=== PATIENT | female | born 1960 | race Caucasian/White ===

== ENCOUNTER 2017-08-29 09:37 | Emergency (ER) | payer SELFPAY ==
[2017-08-29] MEDS ORDERED: PANTOPRAZOLE 40 MG INJ ONE (10:22)
[2017-08-29] MEDS ORDERED: NA CHLORIDE 0.9% 1,000 ML ONE ×2 (10:22→11:48)
[2017-08-29 10:29] LABS: Absolute Lymphocytes (CBC) 1.9 K/uL (0.7-4.9); Absolute Monocytes 0.6 K/uL (0.1-1.3); Absolute Neutrophil 6.9 K/uL (1.8-8.0); Basophils % 0.9 % (0-1.3); Eosinophils % 0.5 % (0-4.4); Hematocrit 42.3 % (36.0-45.0); Lymphocytes % 19.8 % (15.3-44.8); MCH 29.3 pg (27.0-35.0); MCV 90.3 fL (80-100); MPV 10.6 fL (7.6-11.3); Monocytes % 6.1 % (3.3-12.3); RBC Red Blood Cell Count 4.68 M/uL (3.86-4.86)
[2017-08-29 10:31] LABS: Bicarbonate 24 mEq/L (21-31); Glucose Level 154 mg/dL (65-120); Lipase 25 U/L (22-51); Potassium 4.3 mEq/L (3.6-5.0); Sodium Level 136 mEq/L (135-145)
[2017-08-29 10:37] LABS: ALT/SGPT 24 IU/L (10-60); AST/SGOT 44 IU/L (10-42); Albumin 3.7 g/dL (3.2-5.5); Alkaline Phosphatase 119 IU/L (42-121); BUN Blood Urea Nitrogen 38 mg/dL (6-20); Bilirubin Direct 0.3 mg/dL (0-0.2); Bilirubin Total 0.9 mg/dL (0.3-1.2); Protein, Total 7.7 g/dL (6.0-8.3)
[2017-08-29 11:51] LABS: Urine Blood NEGATIVE (NEG); Urine Glucose NEGATIVE (NEG); Urine Protein NEGATIVE (NEG)
[2017-08-29 11:56] LABS: Urine Bacteria <20 /HPF (<20); Urine Culture Reflex Order NOT NEEDED; Urine RBC <5 /HPF (NONE SEEN)
[2017-08-29] MEDS ORDERED: ONDANSETRON 4 MG/2 ML VIAL IV PRN (12:06)
[2017-08-29] MEDS ORDERED: ACETAMINOPHEN 500 MG TAB PO PRN (12:06)
--- NOTE | 2017-08-29 12:21 | ER ---
Nurse's Notes [facility] Name: Lucie Sinclair Age: 57 yrs Sex: Female : 1960 Arrival Date: 08/29/2017 Time: 09:42 Bed 15 Private MD: Gio Hernandez T Diagnosis: Esophageal varices with bleeding;Gastric varices Presentation: 08/29 09:48 Presenting complaint: Patient states: dizziness, blood in vomit and black stools since ss this morning. Pt reports she is scheduled to have an abd ultrasound tomorrow morning and a recent GI bleed. Transition of care: patient was not received from another setting of care. Onset of symptoms was August 29, 2017. Risk Assessment: Do you want to hurt yourself or someone else? Patient reports no desire to harm self or others. Initial Sepsis Screen: Does the patient meet any 2 criteria? HR > 90 bpm. Does the patient have a suspected source of infection? No. Patient's initial sepsis screen is negative. Care prior to arrival: None. 09:48 Method Of Arrival: Ambulatory ss 09:48 Acuity: RJ 2 ss Historical: - Allergies: 09:51 No Known Allergies; ss - PMHx: 09:51 Arthritis; pinched nerve in neck and lower back; Depression; ss - PSHx: 09:51 None; ss - Immunization history:: Adult Immunizations unknown. - Social history:: Smoking status: Patient uses tobacco products, smokes one-half pack cigarettes per day. - Ebola Screening: : Patient denies exposure to infectious person Patient denies travel to an Ebola-affected area in the 21 days before illness onset. Screenin:55 Abuse screen: Denies threats or abuse. Nutritional screening: No deficits noted. rb1 Tuberculosis screening: No symptoms or risk factors identified. Fall Risk None identified. Assessment: 09:55 General: Appears in no apparent distress. comfortable, Behavior is calm, cooperative. rb1 Pain: Complains of pain in abdomen Pain currently is 4 out of 10 on a pain scale. Neuro: Level of Consciousness is awake, alert, obeys commands, Oriented to person, place, time, situation. Cardiovascular: Capillary refill < 3 seconds is brisk in bilateral fingers. Respiratory: Airway is patent Respiratory effort is even, unlabored, Respiratory pattern is regular, symmetrical. GI: Reports bloating, bloody stool, vomiting, since this morning pt. reports vomiting blood. GI: Abdomen is distended, Hard knot noted in the Epigastric area. Pt. is due to have an US tomorrow. : No signs and/or symptoms were reported regarding the genitourinary system. Derm: Skin is pink, warm \T\ dry. Musculoskeletal: Range of motion: intact in all extremities. 10:50 Reassessment: Patient appears in no apparent distress at this time. No changes from rb1 previously documented assessment. 11:50 Reassessment: Patient appears in no apparent distress at this time. Patient and/or rb1 family updated on plan of care and expected duration. Pain level reassessed. Patient is alert, oriented x 3, equal unlabored respirations, skin warm/dry/pink. Assisted the pt. to the restroom. Patient denies pain at this time. 12:34 Reassessment: Patient appears in no apparent distress at this time. Patient and/or rb1 family updated on plan of care and expected duration. Pain level reassessed. Patient is alert, oriented x 3, equal unlabored respirations, skin warm/dry/pink. Pt. is sitting on bedside eating her clear liquid tray. 13:30 Reassessment: Patient appears in no apparent distress at this time. No changes from rb1 previously documented assessment. 14:29 Reassessment: pt. resting with eyes closed, respirations even, unlabored. call light rb1 within reach. 16:51 Reassessment: Patient appears in no apparent distress at this time. Patient and/or rb1 family updated on plan of care and expected duration. Pain level reassessed. Patient is alert, oriented x 3, equal unlabored respirations, skin warm/dry/pink. 16:54 Reassessment: Pt. spit up approximately 50 ml of bloody sputum. Provider notified. rb1 Received order for Zofran 4 mg IVP once. 18:00 Reassessment: Patient appears in no apparent distress at this time. Patient and/or rb1 family updated on plan of care and expected duration. Pain level reassessed. Patient is alert, oriented x 3, equal unlabored respirations, skin warm/dry/pink. 18:36 Reassessment: Attempted to call Jo banerjee at [facility] asked if we could call rb1 be [id number] because they did not have the staff at this time. Notified CN. Yuliya 18:45 Reassessment: Called report to Jo at [facility]. Information from the [facility] was rb1 given. All questions asked and answered. Vital Signs: 09:51 BP 111 / 74; Pulse 128; Resp 17; Temp 97.3(TE); Pulse Ox 95% on R/A; Weight 72.57 kg; ss Height 5 ft. 7 in. (170.18 cm); Pain 5/10; 10:50 BP 109 / 67; Pulse 92; Resp 17; Pulse Ox 96% on R/A; rb1 11:50 BP 126 / 73; Pulse 94; Resp 19; Pulse Ox 98% on R/A; Pain 0/10; rb1 12:30 BP 109 / 55; Pulse 102; Resp 17; Pulse Ox 95% on R/A; rb1 13:30 BP 111 / 62; Pulse 94; Resp 18; Pulse Ox 97% on R/A; rb1 14:30 BP 121 / 76; Pulse 93; Resp 18; Pulse Ox 97% on R/A; rb1 15:30 BP 105 / 79; Pulse 83; Resp 17; Pulse Ox 99% on R/A; rb1 16:30 BP 127 / 79; Pulse 89; Resp 19; Pulse Ox 99% on R/A; rb1 17:30 BP 145 / 63; Pulse 95; Resp 19; Pulse Ox 96% ; rb1 18:30 BP 133 / 67; Pulse 88; Resp 18; Pulse Ox 95% on R/A; rb1 09:51 Body Mass Index 25.06 (72.57 kg, 170.18 cm) ss ED Course: 09:42 Patient arrived in ED. sb2 09:43 Gio Hernandez MD is Private Physician. sb2 09:50 Triage completed. ss 09:51 Arm band placed on left wrist. ss 09:55 Patient has correct armband on for positive identification. Placed in gown. Bed in low rb1 position. Call light in reach. Side rails up X 1. Pulse ox on. NIBP on. 09:57 Yasemin Cardoso, RN is Primary Nurse. rb1 09:59 Jeremy Singh MD is Attending Physician. gs 10:06 Inserted saline lock: 22 gauge in right antecubital area, using aseptic technique. rb1 Blood collected. 10:55 EKG done, by loader technician. reviewed by Jeremy Singh MD. tc 11:16 Urine collected: clean catch specimen, clear. dh3 12:15 Collins Roach MD is Hospitalizing Provider. 13:01 CT completed. Patient tolerated procedure well. Patient moved to CT via stretcher. mw3 Patient moved back from CT. 14:36 Repeat lab(s) drawn. by va, sent to lab. 3 16:21 Repeat lab(s) drawn. by va, sent to lab. [facility] 19:25 No provider procedures requiring assistance completed. Patient transferred, IV remains rb1 in place. Administered Medications: 10:22 Drug: ProTONIX 40 mg Route: IVP; Site: right antecubital; rb1 10:41 Follow up: Response: No adverse reaction rb1 10:22 Drug: NS 0.9% 1000 ml Route: IV; Rate: 1 bolus; Site: right antecubital; rb1 11:19 Follow up: IV Status: Completed infusion rb1 11:52 Drug: NS 0.9% 1000 ml Route: IV; Rate: 1000 ml; Site: right antecubital; rb1 12:15 Follow up: IV Status: Completed infusion rb1 16:50 Drug: Octreotide 50 mcg Route: IV; Rate: bolus; Site: right antecubital; rb1 16:58 Drug: Zofran 4 mg Route: IVP; Site: right antecubital; rb1 17:18 Follow up: Response: No adverse reaction; Nausea is decreased rb1 Intake: 16:54 pt. spit out about 50 ml of bloody sputum. Provider notified. rb1 Output: 11:45 Urine: 1ml (Voided); Total: 1ml. rb1 16:54 pt. spit out about 50 ml of bloody sputum. Provider notified. rb1 Outcome: 12:20 Decision to Hospitalize by Provider. gs 16:52 ER care complete, transfer ordered by . gs 19:25 Patient left the ED. rb1 19:25 Transferred by ground EMS to [facility]. [facility] 19:25 Condition: stable 19:25 Instructed on the need for transfer. Signatures: Yuliya West, RN RN Lana Coker, surgery tech EKG Ttc Yasemin Cardoso RN RN [facility] Rosario Carrasco [facility] Jeremy Singh MD MD Kourtney Hernandez sb2 Brandie Edgar mw3 Corrections: (The following items were deleted from the chart) 18:45 18:42 Note:pt. spit out about 50 ml of bloody sputum. Provider notified.. rb1 rb1
--- NOTE | 2017-08-29 12:21 | EDPHYS ---
Physician Documentation [facility] Name: Lucie Sinclair Age: 57 yrs Sex: Female : 1960 Arrival Date: 08/29/2017 Time: 09:42 Bed 15 Private MD: Gio Hernandez T ED Physician Gurwinder Singhory HPI: 08/29 16:46 This 57 yrs old Female presents to ER via Ambulatory with complaints of gs Bloody Stools, Vomiting Blood. 16:46 The patient presents to the emergency department vomiting blood, a moderate amount, gs bright red, dark brown, 2 times since symptom onset, with rectal bleeding, melena. Onset: The symptoms/episode began/occurred 2 day(s) ago. Abdominal pain: described as crampy. Modifying factors: The symptoms are alleviated by nothing, the symptoms are aggravated by nothing. Associated signs and symptoms: Pertinent negatives: chest pain, fever. Severity of symptoms: At their worst the symptoms were severe in the emergency department the symptoms have improved moderately. The patient has not experienced similar symptoms in the past. The patient has not recently seen a physician. Historical: - Allergies: 09:51 No Known Allergies; ss - PMHx: 09:51 Arthritis; pinched nerve in neck and lower back; Depression; ss - PSHx: 09:51 None; ss - Immunization history:: Adult Immunizations unknown. - Social history:: Smoking status: Patient uses tobacco products, smokes one-half pack cigarettes per day. - Ebola Screening: : Patient denies exposure to infectious person Patient denies travel to an Ebola-affected area in the 21 days before illness onset. ROS: 16:46 All other systems are negative. gs Exam: 16:46 Head/Face: Normocephalic, atraumatic. Eyes: Pupils equal round and reactive to light, gs extra-ocular motions intact. Lids and lashes normal. Conjunctiva and sclera are non-icteric and not injected. Cornea within normal limits. Periorbital areas with no swelling, redness, or edema. ENT: Nares patent. No nasal discharge, no septal abnormalities noted. Tympanic membranes are normal and external auditory canals are clear. Oropharynx with no redness, swelling, or masses, exudates, or evidence of obstruction, uvula midline. Mucous membranes moist. Neck: Trachea midline, no thyromegaly or masses palpated, and no cervical lymphadenopathy. Supple, full range of motion without nuchal rigidity, or vertebral point tenderness. No Meningismus. Chest/axilla: Normal chest wall appearance and motion. Nontender with no deformity. No lesions are appreciated. 16:46 Constitutional: The patient appears alert, awake, pale. 16:46 Cardiovascular: Rate: tachycardic, Rhythm: regular, Pulses: no pulse deficits are appreciated. 16:46 ECG was reviewed by the Attending Physician. Vital Signs: 09:51 BP 111 / 74; Pulse 128; Resp 17; Temp 97.3(TE); Pulse Ox 95% on R/A; Weight 72.57 kg; ss Height 5 ft. 7 in. (170.18 cm); Pain 5/10; 10:50 BP 109 / 67; Pulse 92; Resp 17; Pulse Ox 96% on R/A; rb1 11:50 BP 126 / 73; Pulse 94; Resp 19; Pulse Ox 98% on R/A; Pain 0/10; rb1 12:30 BP 109 / 55; Pulse 102; Resp 17; Pulse Ox 95% on R/A; rb1 13:30 BP 111 / 62; Pulse 94; Resp 18; Pulse Ox 97% on R/A; rb1 14:30 BP 121 / 76; Pulse 93; Resp 18; Pulse Ox 97% on R/A; rb1 15:30 BP 105 / 79; Pulse 83; Resp 17; Pulse Ox 99% on R/A; rb1 16:30 BP 127 / 79; Pulse 89; Resp 19; Pulse Ox 99% on R/A; rb1 17:30 BP 145 / 63; Pulse 95; Resp 19; Pulse Ox 96% ; rb1 18:30 BP 133 / 67; Pulse 88; Resp 18; Pulse Ox 95% on R/A; rb1 09:51 Body Mass Index 25.06 (72.57 kg, 170.18 cm) MDM: 10:13 Patient medically screened. 16:46 Differential diagnosis: gastritis, hemorrhoids, hemorrhagic shock, varices. Data reviewed: vital signs, nurses notes. Response to treatment: the patient's symptoms have mildly improved after treatment. 16:46 ED course: dr asencoi says need to transfer due to esophageal varicies. 08/29 10:06 Order name: Basic Metabolic Panel; Complete Time: 11:42 08/29 10:06 Order name: CBC with Diff; Complete Time: 11:42 08/29 10:06 Order name: Hepatic Function; Complete Time: 11:42 08/29 10:06 Order name: Lipase; Complete Time: 11:42 08/29 10:06 Order name: Urine Microscopic Only; Complete Time: 11:57 08/29 10:06 Order name: Type And Screen; Complete Time: 11:42 08/29 11:28 Order name: Urine Dipstick--Ancillary (enter results); Complete Time: 11:57 ag 08/29 11:28 Order name: Urine --Ancillary (enter results); Complete Time: 11:57 ag 08/29 12:10 Order name: Basic Metabolic Panel [facility] 08/29 12:10 Order name: CBC with Automated Diff [facility] 08/29 12:10 Order name: Hematocrit [facility] 08/29 12:10 Order name: Hematocrit; Complete Time: 15:54 [facility] 08/29 12:10 Order name: Hematocrit [facility] 08/29 12:10 Order name: Hemoglobin [facility] 08/29 12:10 Order name: Hemoglobin; Complete Time: 15:54 [facility] 08/29 12:10 Order name: Hemoglobin [facility] 08/29 12:36 Order name: CT Stone Protocol 08/29 12:57 Order name: ABO/RH no charge; Complete Time: 15:54 [facility] 08/29 13:25 Order name: CT; Complete Time: 15:54 [facility] 08/29 16:16 Order name: PT-INR 08/29 10:06 Order name: IV Saline Lock; Complete Time: 10:19 08/29 10:06 Order name: Labs collected and sent; Complete Time: 10:19 08/29 10:06 Order name: Urine Dipstick-Ancillary (obtain specimen); Complete Time: 11:16 08/29 12:10 Order name: CONS Pharmacy Consult [facility] 08/29 12:10 Order name: CONS Physician Consult [facility] 08/29 12:10 Order name: Clear Liquid [facility] 08/29 12:20 Order name: EKG Electrocardiogram [facility] EC:46 Rate is 104 beats/min. Rhythm is regular. WA interval is normal. QRS interval is gs normal. T waves are Normal. No ST changes noted. Clinical impression: Sinus tachycardia. Interpreted by me. Administered Medications: 10:22 Drug: ProTONIX 40 mg Route: IVP; Site: right antecubital; rb1 10:41 Follow up: Response: No adverse reaction rb1 10:22 Drug: NS 0.9% 1000 ml Route: IV; Rate: 1 bolus; Site: right antecubital; rb1 11:19 Follow up: IV Status: Completed infusion rb1 11:52 Drug: NS 0.9% 1000 ml Route: IV; Rate: 1000 ml; Site: right antecubital; rb1 12:15 Follow up: IV Status: Completed infusion rb1 16:50 Drug: Octreotide 50 mcg Route: IV; Rate: bolus; Site: right antecubital; rb1 16:58 Drug: Zofran 4 mg Route: IVP; Site: right antecubital; rb1 17:18 Follow up: Response: No adverse reaction; Nausea is decreased rb1 Disposition: 08/29/17 16:52 Transfer ordered to [facility]. Diagnosis are Esophageal varices with bleeding, Gastric varices. - Reason for transfer: Higher level of care. - Accepting physician is timmy. - Condition is Stable. - Problem is new. - Symptoms have improved. Critical care time excluding procedures: 16:46 Critical care time: Bedside Care: 10 minutes, Consultation: 10 minutes, Family gs Intervention: 10 minutes. Total time: 30 minutes Signatures: Dispatcher [employer] Hoda Moore RN RN dw Smirch, Shelby, RN RN ss Barber, Rebecca, RN RN rb1 Jeremy Singh MD MD Corrections: (The following items were deleted from the chart) 15:47 12:20 Hospitalization Ordered by Collins Roach MD for Observation. Preliminary diagnosis dw is Gastroduodenitis, unspecified, with bleeding. Bed requested for Telemetry/MedSurg (observation). Status is Observation. Condition is Stable. Problem is new. Symptoms have improved. UTI on Admission? No. gs 16:51 15:47 08/29/2017 12:20 Hospitalization Ordered by Collins Roach MD for Observation. gs Preliminary diagnosis is Gastroduodenitis, unspecified, with bleeding. Bed requested for Telemetry/MedSurg (observation). Status is Observation. Condition is Stable. Problem is new. Symptoms have improved. UTI on Admission? No. dw 19:25 16:52 08/29/2017 16:52 Transfer ordered to [facility]. Diagnosis is rb1 Esophageal varices with bleeding; Gastric varices. Reason for transfer: Higher level of care. Accepting physician is timmy. Condition is Stable. Problem is new. Symptoms have improved. gs
[2017-08-29] MEDS ORDERED: NA CHLORIDE 0.9% 1,000 ML IV SCH (13:00)
[2017-08-29] MEDS ORDERED: NA CHLORIDE 0.9% 250 ML IV SCH (13:00)
[2017-08-29] MEDS ORDERED: PANTOPRAZOLE INJ 80 MG in NA CHLORIDE 0.9% 250 ML IV SCH (13:00)
--- NOTE | 2017-08-29 13:25 | RAD REPORT ---
EXAM DESCRIPTION: CT - Stone Protocol - 08/29/2017 1:04 pm CLINICAL HISTORY: Epigastric pain, midline mass in the epigastrium, abdominal pain COMPARISON: None. TECHNIQUE: CT imaging of the abdomen and pelvis was performed without IV contrast. No IV contrast wa s given because of allergy, abnormal renal function, patient refusal or physician request. No oral co ntrast administered. All CT scans are performed using dose optimization technique as appropriate and may include automated exposure control or mA/KV adjustment according to patient size. FINDINGS: No pneumothorax or pleural effusion. No pericardial effusion. In the right lower lobe ther e is a 3.5 centimeter mass density that is only partially imaged on this study. This follows distally into the right lung base along the bronchial tree. The bronchi appear to be dilated and filled with material. There is focal nodularity in the posterolateral base. Right lung base mass is not fully characterized. No calcifications are present. A right lung base mal ignancy with extension along the bronchial tree is possible. Patient has an enlarged left lobe with a prominent capsular nodularity to the liver capsule. This adv anced liver cirrhosis pattern also shows relative hypodensity of liver parenchyma in the midline left lobe when viewed on coarse liver window setting. Liver parenchymal assessment is limited in the abse nce of IV contrast. Spleen is upper normal in size. No focal splenic finding on noncontrast imaging. No acute pancreatic or peripancreatic abnormality. Small gallstones are present. Acute gallbladder disease is doubtful. W all does appear to be thickened slightly probably chronic change from the liver disease. No biliary t ree dilatation. No hydronephrosis or suspicious renal mass. Urinary bladder is mostly contracted limiting assessment. Uterus and ovaries show no suspicious findings. No significant adrenal finding. Isodense masses and pyelonephritis cannot be excluded in the absence of IV contrast. Stomach is not dilated. There is no gross thickening or mass of the gastric wall. However, there is l obulated hyperdense material in the lumen suspicious for hematoma. Patient has recannulized umbilical vein. There are numerous varices in the upper abdomen. A bleeding esophageal varix would be a primar y consideration. Portal vein thrombosis cannot be assessed on noncontrast imaging. There are numerous varices of the upper abdomen. No dilated large or small bowel. No acute appendicitis. Patient has diverticulosis but no acute diver ticulitis findings. A primary colon mass is not suspected. There is a congested or edematous appearan ce to the periaortic fat. An acute vascular process is doubtful. No free air or pneumatosis. No measu rable ascites. No hernia or bulky lymphadenopathy. No omental thickening. There is nodularity of the upper anterior abdominal wall that is probably vasculature. No suspicious bony findings. IMPRESSION: Lobulated hyperdense material within the gastric lumen suspicious for significant hemato ma. A bleeding gastric varix is suspected. Advanced cirrhotic changes to the liver. Liver parenchymal assessment is limited; however, on coarse liver window settings there is diminished attenuation in the anterior superior left lobe. Hepatocellu lar carcinoma cannot be excluded. Approximately 3.5 centimeter right lower lobe lung mass concerning for malignancy. This is not fully assessed on this examination. No free air or other surgically emergent finding within the peritoneal cavity. Full assessment is limited is the absence of IV contrast.
--- NOTE | 2017-08-29 15:00 | EKG ---
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
[2017-08-29 16:30] LABS: Hematocrit 36.1 % (36.0-45.0)
[2017-08-29] MEDS ORDERED: OCTREOTIDE ACETATE 100 MCG/ML ONE (16:45)
[2017-08-29] MEDS ORDERED: ONDANSETRON 4 MG/2 ML VIAL ONE (16:55)
[2017-08-29 16:58] LABS: Protime INR 1.5
--- NOTE | 2017-08-30 02:10 | HP ---
Date of Admission: 08/29/2017 Consultants: Dr. Neville, GI. Chief Complaint: GI bleed. Code Status: Full. History Of Present Illness: The patient is a 57-year-old female with past medical history of depression, on SSRI, who was in her usual state of health until 1 month prior to admission. The patient had coffee-grounds emesis. On day of admission, the patient had hematemesis, which was dark red along with some melenic stool. The patient did report some nausea, lightheadedness, but no blurry vision or shortness of breath. The patient does report using Advil daily for her osteoarthritis. The patient came into the ER for further evaluation. She was found to be hypotensive with systolic blood pressure in the 80s and tachycardic with heart rate in the 120s. Her hemoglobin level was approximately 14. The patient was given IV fluid bolus normal saline x2 and started on Protonix. The patient was then referred for admission. When seen in the ER, the patient was awake, alert, oriented x3 in some mild distress, appears older than stated age. Past Medical History: Depression, generalized osteoarthritis, history of alcohol dependence, quit 2 years ago. Past Surgical History: None. Allergies: NO KNOWN DRUG ALLERGIES. Medications: List reviewed. Social History: The patient smokes 1 pack per day for the past 20 years. Drank heavily for 10 years. Quit approximately 2 years ago. No illicit drug use. Independent in her activities of daily living. Family History: Positive for cervical cancer in the mom and father who had UT at age 52 and . Review of Systems: An 11-point system reviewed, negative except as per HPI. Physical Examination: Vital signs: Blood pressure 111/74, pulse 128, respirations 17, temperature 97.3, O2 95% on room air. General: Awake, alert, oriented x3. Some mild distress, appears older than stated age. HEENT: Normocephalic, atraumatic. PERRLA, EOMI. Dry mucous membranes. Oropharynx is clear. Poor dentition. Conjunctivae anicteric. Neck: Supple. No JVD. Trachea midline. CV: S1, S2. Sinus tachycardia. No murmurs. Peripheral pulses present. Respiratory: Clear to auscultation bilaterally. No wheezing. No stridor. No use of accessory muscles. Gastrointestinal: Abdomen is soft. Mild distention with venous engorgement. No ascites. No fluid wave. Bowel sounds are positive. No guarding or rigidity. Extremities: No clubbing, cyanosis. The patient does have trace pedal edema. No calf tenderness. Neuro: Cranial nerves 2-12 intact grossly. No focal neurological deficit. Speech is normal. Strength is 5/5 bilateral upper and lower extremities. Skin: No rashes. Normal skin turgor. Psych: Mood is okay. Affect is full. Insight and judgment are good. Laboratory Data: WBC 9.5, H and H 13.7 and 42.3, platelets 237. Sodium 136, potassium 4.3, chloride 105, CO2 of 24, BUN 38, creatinine 0.59, glucose 154, calcium 10.7, total bilirubin 0.9, AST 44, ALT 24, alkaline phosphatase 119, albumin 3.7. UA negative. CT scan of the abdomen and pelvis personally reviewed, shows lobulated hyperdense material within the gastric lumen suspicious for significant hematoma. 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 Liver parenchymal assessment is limited. However, on course liver window settings, there is diminished attenuation in the anterior superior left lobe. Hepatocellular carcinoma cannot be excluded. Approximately 3.5-cm right lower lobe lung mass concerning for malignancy, not fully assessed on examination. No free air or other surgically emergent findings within the peritoneal cavity for assessment is limited in absence of IV contrast. Assessment: A 57-year-old female with. 1. Acute gastrointestinal bleed, likely related to hematoma in the gastric lumen secondary to bleeding gastric varix. We will monitor H and H, type and screen. Gastrointestinal has been consulted. We will obtain surgical consultation. 2. Hypercalcemia, likely related to lung mass. 3. Elevated liver enzymes, likely related to alcoholic liver disease. 4. Right lower lobe lung mass, 3.5 cm, concerning for malignancy. We will obtain Pulmonology and Oncology evaluation. 5. Alcoholic liver cirrhosis. 6. Nicotine dependence with cigarette smoking, uncomplicated. 7. Gastrointestinal and deep venous thrombosis prophylaxis with PPI and SCDs. No chemical anticoagulation due to gastrointestinal bleed. Plan: Overall, the patient has a guarded prognosis due to her findings including significant hematoma and bleeding gastric varix, likely also has lung base malignancy given her history of smoking. Overall prognosis is very poor. ADDENDUM: Spoke with Dr. Neville who recommended transfer to tertiary facility for higher level of care. Patient transferred from ER. /CARMEN Voice ID: [id number] [id number]
== END 2017-08-29 19:25 | disposition short-term general hospital (02) ==
LOC: ER 09:37 → ERHOLD 12:37 → UNDOADMOB 12:37 → ERHOLD 15:20 → ER 19:25
DX: I85.01 Esophageal varices with bleeding (principal); I86.4 Gastric varices; F17.210 Nicotine dependence, cigarettes, uncomplicated; F32.9 Major depressive disorder, single episode, unspecified; F10.21 Alcohol dependence, in remission
CPT/HCPCS: 36415; 74176; 76377; 80048; 80076; 81003; 81015; 81025; 83690; 85014; 85018; 85025; 85610; 86850; 86900; 86901; 93005; 96361; 96374; 96375; 99285; C9113; J2354; J2405; J7030

== ENCOUNTER 2017-09-23 18:26 | Emergency (ER) | payer OTHER, SELFPAY ==
[2017-09-23] MEDS ORDERED: SUCCINYLCHOLINE 20 MG/ML (10 ML) IV ONE (18:27)
[2017-09-23] MEDS ORDERED: ETOMIDATE 20 MG/10 ML VIAL IV ONE (18:27)
[2017-09-23] MEDS ORDERED: WATER FOR INJ,STERILE 10 ML IM ONE (18:27)
[2017-09-23] MEDS ORDERED: VECURONIUM 10 MG/VIAL IV ONE (18:27)
[2017-09-23] MEDS ORDERED: LIDOCAINE 1% MPF 5 ML VIAL IJ ONE (18:27)
--- OUTSIDE RECORDS SUMMARY | 2017-09-23 18:29 | XMS REPORT | Clinical Summary ---
:1960 Author Organization [facility] Address [address] [place] [address] Phone Care Team Providers Name Role Phone Unavailable Primary Care Provider Unavailable Allergies Active Allergy Reactions Severity Noted Date Comments Hydrocodone-Acetaminophen 08/29/2017 Current Medications Prescription Sig. Disp. Refills Start Date End Date Status pantoprazole (PROTONIX) Take 1 tablet (40 60 tablet 0 09/01/2017 Active 40 MG tablet mg total) by mouth 2 (two) times daily. Active Problems Problem Noted Date Hematemesis 08/29/2017 Acute GI bleeding 08/29/2017 Alcoholic cirrhosis (HCC) 08/29/2017 Right lower lobe lung mass 08/29/2017 Encounters Date Type Specialty Care Team Description 08/30/2017 Anesthesia Event Gastroenterology Sebas gAuirre MD 08/30/2017 Procedure Pass Gastroenterology 08/30/2017 Surgery Gastroenterology Fernando Matthews MD ENDOSCOPY,BIOPSY 08/29/2017 Hospital [facility] [place], Acute GI bleeding - Encounter Medicine Tony (Primary 09/01/2017 MD Pepe Dx);Alcoholic Mar, Dereddi cirrhosis of Elio Oliva MD liver without Bartsch Darlyn ascites MD Christine (HCC);Hematemesis without nausea;Right lower lobe lung mass;Abnormal CXR;Liver mass;Thyroid mass;Mediastinal adenopathy 08/29/2017 Telephone Critical Care Medicine Larry, [id number] Call Tony Cantu MD after 09/22/2016 Family History Medical History Relation Name Comments Alcohol abuse Brother Alcohol abuse Brother Heart attack Father Arthritis Mother Cervical cancer Mother Alcohol abuse Sister Relation Name Status Comments Brother Brother Father Mother Sister Social History Tobacco Use Types Packs/Day Years Used Date Current Every Day Smoker Smokeless Tobacco: Never Used Alcohol Use Drinks/Week oz/Week Comments No Sex Assigned at Date Recorded Not on file Last Filed Vital Signs Vital Sign Reading Time Taken Blood Pressure 103/55 09/01/2017 3:41 PM CDT Pulse 80 09/01/2017 8:30 PM CDT Temperature 36.2 C (97.1 F) 09/01/2017 3:41 PM CDT Respiratory Rate 18 09/01/2017 8:30 PM CDT Oxygen Saturation 97% 09/01/2017 8:30 PM CDT Inhaled Oxygen Concentration - - Weight 65.4 kg (144 lb 4 oz) 09/01/2017 9:00 AM CDT Height 170.2 cm (5' 7") 08/31/2017 6:00 AM CDT Body Mass Index 22.59 09/01/2017 9:00 AM CDT Plan of Treatment Not on file Procedures Procedure Name Priority Date/Time Associated Diagnosis Comments UPPER 08/30/2017 9:00 AM Gastrointestinal ENDOSCOPY,BIOPSY CDT hemorrhage, unspecified gastrointestinal hemorrhage type after 09/22/2016 Results EKG-SCANNED (09/04/2017 11:30 AM)RHYTHM STRIP - SCAN (09/04/2017 11:30 AM)CT chest with IV contrast (09/01/2017 12:16 PM) Specimen Performing Laboratory [facility] Narrative Addendum Begins REPORT STATUS:A The CT of the abdomen was performed with and without the administration of IV contrast. The CT of the chest and pelvis was performed with the administration of IV contrast. Signed: Eber Matamoros MD Report Verified Date/Time:09/05/2017 14:06:19 Reading Location: [address] Ultrasound Reading Room Addendum Ends FINAL REPORT HISTORY : eval for cirrhosis, alcohol abuse, liver protocol TECHNIQUE :Multiple axial images of the chest, abdomen and pelvis were performed with 5 mm slice thickness with the administration of IV and oral contrast from the lung apices to the pubic symphysis. Delayed images were also obtained. This exam was performed according to our departmental dose optimization program which includes automated exposure control, adjustment of the mA and/or kV according to patient size and/or use of iterative reconstructive technique. COMPARISON : None CHEST : Within the left thyroid lobe, there is a 2.3 x 1.6 cm indeterminate mass. An additional mass is seen just inferior to the thyroid lobe most likely represents an enlarged lymph node. There are numerous enlarged metastatic lymph nodes. For example, there is an enlarged subcarinal lymph node measuring 5.0 x 4.0 cm. There is an enlarged right paratracheal lymph node measuring 2.6 x 3.1 cm. There is no axillary lymphadenopathy. There are some enlarged right hilar lymph nodes with the largest measuring up to 3.0 x 2.3 cm. The osseous structures as well as the subcutaneous soft tissues are without any abnormalities. In the right lower lobe, there is a 3.5 x 3.7 cm mass. There are some irregular elongated nodular densities also identified in the right lower lobe. Findings could be secondary to lymphangitic spread of neoplasm. In the right lower lobe, there is a 0.7 cm isolated nodule. There is no pleural effusion, pneumothorax or infiltrate. ABDOMEN/PELVIS: The visualized spleen, adrenal glands, kidneys, pancreas, stomach and duodenum are within normal limits. There are numerous arterial enhancing lesions throughout the liver. The largest lesion is seen in the lateral segment of the left hepatic lobe measuring up to 6.4 x 5.9 cm. There is an overall heterogeneous and underlying appearance of the liver that could be due to the presence of the multiple masses. Underlying hepatic cirrhosis cannot be excluded. There is atherosclerotic vascular disease. There is an increased number of mildly enlarged abdominal and retroperitoneal lymph nodes. These are seen most significantly in the gastrohepatic region with the largest measuring up to 1.5 x 1.4 cm. There is also some mild edema/infiltration into the retroperitoneum. There are several omental based nodules/masses seen most significantly in the midline with the largest measuring up to 1.8 x 1.6 cm. Multilevel degenerative disc changes of the thoracolumbar spine are seen. No free air is identified in the abdomen or pelvis. There is a trace amount of free fluid in the abdomen and pelvis. No findings of any bowel obstruction. The small bowel is within normal limits. There is colonic diverticulosis. There are no CT findings to suggest diverticulitis, however. There is some poor distention identified of the sigmoid colon with some wall thickening. Although wall thickening may be related to underdistention, diffuse nonspecific colitis cannot be entirely excluded. The appendix is visualized. There are no CT findings to suggest appendicitis. The uterus is atrophic. The patient does have some bilateral likely tubal ligation clips. There is poor distention of the bladder. Thickening of the bladder wall is more likely due to underdistention. A process such as cystitis or other infiltrative process cannot be excluded. Impression: 1. Right lower lobe pulmonary mass that could represent a bronchogenic neoplasm, metastatic lesion or enlarged hilar/perihilar lymph node. Reticular nodular densities in the right lower lobe could represent lymphangitic spread of neoplasm. 2. Multiple enlarged mediastinal lymph nodes. There is also increased number of mildly prominent abdominal and retroperitoneal lymph nodes with some edema/stranding in the retroperitoneum. 3. Multiple hepatic masses concerning for metastatic disease or multifocal hepatocellular carcinoma. There is suspected underlying cirrhosis. 4. Multiple midline omental nodules concerning for omental metastatic disease. 5. Colonic diverticulosis. 6. Indeterminate left thyroid nodule. Signed: Eber Matamoros MD Report Verified Date/Time:09/01/2017 12:51:05 Reading Location: [facility] [id number] CT Body Reading Room Procedure Note Interface, External Ris In - 09/05/2017 2:08 PM CDT Addendum Begins REPORT STATUS:A The CT of the abdomen was performed with and without the administration of IV contrast. The CT of the chest and pelvis was performed with the administration of IV contrast. Signed: Eber Matamoros MD Report Verified Date/Time: 09/05/2017 14:06:19 Reading Location: [facility] [id number] Ultrasound Reading Room Addendum Ends FINAL REPORT HISTORY : eval for cirrhosis, alcohol abuse, liver protocol TECHNIQUE : Multiple axial images of the chest, abdomen and pelvis were performed with 5 mm slice thickness with the administration of IV and oral contrast from the lung apices to the pubic symphysis. Delayed images were also obtained. This exam was performed according to our departmental dose optimization program which includes automated exposure control, adjustment of the mA and/or kV according to patient size and/or use of iterative reconstructive technique. COMPARISON : None CHEST : Within the left thyroid lobe, there is a 2.3 x 1.6 cm indeterminate mass. An additional mass is seen just inferior to the thyroid lobe most likely represents an enlarged lymph node. There are numerous enlarged metastatic lymph nodes. For example, there is an enlarged subcarinal lymph node measuring 5.0 x 4.0 cm. There is an enlarged right paratracheal lymph node measuring 2.6 x 3.1 cm. There is no axillary lymphadenopathy. There are some enlarged right hilar lymph nodes with the largest measuring up to 3.0 x 2.3 cm. The osseous structures as well as the subcutaneous soft tissues are without any abnormalities. In the right lower lobe, there is a 3.5 x 3.7 cm mass. There are some irregular elongated nodular densities also identified in the right lower lobe. Findings could be secondary to lymphangitic spread of neoplasm. In the right lower lobe, there is a 0.7 cm isolated nodule. There is no pleural effusion, pneumothorax or infiltrate. ABDOMEN/PELVIS: The visualized spleen, adrenal glands, kidneys, pancreas, stomach and duodenum are within normal limits. There are numerous arterial enhancing lesions throughout the liver. The largest lesion is seen in the lateral segment of the left hepatic lobe measuring up to 6.4 x 5.9 cm. There is an overall heterogeneous and underlying appearance of the liver that could be due to the presence of the multiple masses. Underlying hepatic cirrhosis cannot be excluded. There is atherosclerotic vascular disease. There is an increased number of mildly enlarged abdominal and retroperitoneal lymph nodes. These are seen most significantly in the gastrohepatic region with the largest measuring up to 1.5 x 1.4 cm. There is also some mild edema/infiltration into the retroperitoneum. There are several omental based nodules/masses seen most significantly in the midline with the largest measuring up to 1.8 x 1.6 cm. Multilevel degenerative disc changes of the thoracolumbar spine are seen. No free air is identified in the abdomen or pelvis. There is a trace amount of free fluid in the abdomen and pelvis. No findings of any bowel obstruction. The small bowel is within normal limits. There is colonic diverticulosis. There are no CT findings to suggest diverticulitis, however. There is some poor distention identified of the sigmoid colon with some wall thickening. Although wall thickening may be related to underdistention, diffuse nonspecific colitis cannot be entirely excluded. The appendix is visualized. There are no CT findings to suggest appendicitis. The uterus is atrophic. The patient does have some bilateral likely tubal ligation clips. There is poor distention of the bladder. Thickening of the bladder wall is more likely due to underdistention. A process such as cystitis or other infiltrative process cannot be excluded. Impression: 1. Right lower lobe pulmonary mass that could represent a bronchogenic neoplasm, metastatic lesion or enlarged hilar/perihilar lymph node. Reticular nodular densities in the right lower lobe could represent lymphangitic spread of neoplasm. 2. Multiple enlarged mediastinal lymph nodes. There is also increased number of mildly prominent abdominal and retroperitoneal lymph nodes with some edema/stranding in the retroperitoneum. 3. Multiple hepatic masses concerning for metastatic disease or multifocal hepatocellular carcinoma. There is suspected underlying cirrhosis. 4. Multiple midline omental nodules concerning for omental metastatic disease. 5. Colonic diverticulosis. 6. Indeterminate left thyroid nodule. Signed: Eber Matamoros MD Report Verified Date/Time: 09/01/2017 12:51:05 Reading Location: [facility] [id number] CT Body Reading Room abdomen/pelvis without & with IV contrast (09/01/2017 12:16 PM) Specimen Performing Laboratory [facility] Narrative Addendum Begins REPORT STATUS:A The CT of the abdomen was performed with and without the administration of IV contrast. The CT of the chest and pelvis was performed with the administration of IV contrast. Signed: Eber Matamoros MD Report Verified Date/Time:09/05/2017 14:06:19 Reading Location: [facility] [id number] Ultrasound Reading Room Addendum Ends FINAL REPORT HISTORY : eval for cirrhosis, alcohol abuse, liver protocol TECHNIQUE :Multiple axial images of the chest, abdomen and pelvis were performed with 5 mm slice thickness with the administration of IV and oral contrast from the lung apices to the pubic symphysis. Delayed images were also obtained. This exam was performed according to our departmental dose optimization program which includes automated exposure control, adjustment of the mA and/or kV according to patient size and/or use of iterative reconstructive technique. COMPARISON : None CHEST : Within the left thyroid lobe, there is a 2.3 x 1.6 cm indeterminate mass. An additional mass is seen just inferior to the thyroid lobe most likely represents an enlarged lymph node. There are numerous enlarged metastatic lymph nodes. For example, there is an enlarged subcarinal lymph node measuring 5.0 x 4.0 cm. There is an enlarged right paratracheal lymph node measuring 2.6 x 3.1 cm. There is no axillary lymphadenopathy. There are some enlarged right hilar lymph nodes with the largest measuring up to 3.0 x 2.3 cm. The osseous structures as well as the subcutaneous soft tissues are without any abnormalities. In the right lower lobe, there is a 3.5 x 3.7 cm mass. There are some irregular elongated nodular densities also identified in the right lower lobe. Findings could be secondary to lymphangitic spread of neoplasm. In the right lower lobe, there is a 0.7 cm isolated nodule. There is no pleural effusion, pneumothorax or infiltrate. ABDOMEN/PELVIS: The visualized spleen, adrenal glands, kidneys, pancreas, stomach and duodenum are within normal limits. There are numerous arterial enhancing lesions throughout the liver. The largest lesion is seen in the lateral segment of the left hepatic lobe measuring up to 6.4 x 5.9 cm. There is an overall heterogeneous and underlying appearance of the liver that could be due to the presence of the multiple masses. Underlying hepatic cirrhosis cannot be excluded. There is atherosclerotic vascular disease. There is an increased number of mildly enlarged abdominal and retroperitoneal lymph nodes. These are seen most significantly in the gastrohepatic region with the largest measuring up to 1.5 x 1.4 cm. There is also some mild edema/infiltration into the retroperitoneum. There are several omental based nodules/masses seen most significantly in the midline with the largest measuring up to 1.8 x 1.6 cm. Multilevel degenerative disc changes of the thoracolumbar spine are seen. No free air is identified in the abdomen or pelvis. There is a trace amount of free fluid in the abdomen and pelvis. No findings of any bowel obstruction. The small bowel is within normal limits. There is colonic diverticulosis. There are no CT findings to suggest diverticulitis, however. There is some poor distention identified of the sigmoid colon with some wall thickening. Although wall thickening may be related to underdistention, diffuse nonspecific colitis cannot be entirely excluded. The appendix is visualized. There are no CT findings to suggest appendicitis. The uterus is atrophic. The patient does have some bilateral likely tubal ligation clips. There is poor distention of the bladder. Thickening of the bladder wall is more likely due to underdistention. A process such as cystitis or other infiltrative process cannot be excluded. Impression: 1. Right lower lobe pulmonary mass that could represent a bronchogenic neoplasm, metastatic lesion or enlarged hilar/perihilar lymph node. Reticular nodular densities in the right lower lobe could represent lymphangitic spread of neoplasm. 2. Multiple enlarged mediastinal lymph nodes. There is also increased number of mildly prominent abdominal and retroperitoneal lymph nodes with some edema/stranding in the retroperitoneum. 3. Multiple hepatic masses concerning for metastatic disease or multifocal hepatocellular carcinoma. There is suspected underlying cirrhosis. 4. Multiple midline omental nodules concerning for omental metastatic disease. 5. Colonic diverticulosis. 6. Indeterminate left thyroid nodule. Signed: Eber Matamoros MD Report Verified Date/Time:09/01/2017 12:51:05 Reading Location: [facility] [id number] CT Body Reading Room Procedure Note Interface, External Ris In - 09/05/2017 2:08 PM CDT Addendum Begins REPORT STATUS:A The CT of the abdomen was performed with and without the administration of IV contrast. The CT of the chest and pelvis was performed with the administration of IV contrast. Signed: Eber Matamoros MD Report Verified Date/Time: 09/05/2017 14:06:19 Reading Location: [facility] [id number] Ultrasound Reading Room Addendum Ends FINAL REPORT HISTORY : eval for cirrhosis, alcohol abuse, liver protocol TECHNIQUE : Multiple axial images of the chest, abdomen and pelvis were performed with 5 mm slice thickness with the administration of IV and oral contrast from the lung apices to the pubic symphysis. Delayed images were also obtained. This exam was performed according to our departmental dose optimization program which includes automated exposure control, adjustment of the mA and/or kV according to patient size and/or use of iterative reconstructive technique. COMPARISON : None CHEST : Within the left thyroid lobe, there is a 2.3 x 1.6 cm indeterminate mass. An additional mass is seen just inferior to the thyroid lobe most likely represents an enlarged lymph node. There are numerous enlarged metastatic lymph nodes. For example, there is an enlarged subcarinal lymph node measuring 5.0 x 4.0 cm. There is an enlarged right paratracheal lymph node measuring 2.6 x 3.1 cm. There is no axillary lymphadenopathy. There are some enlarged right hilar lymph nodes with the largest measuring up to 3.0 x 2.3 cm. The osseous structures as well as the subcutaneous soft tissues are without any abnormalities. In the right lower lobe, there is a 3.5 x 3.7 cm mass. There are some irregular elongated nodular densities also identified in the right lower lobe. Findings could be secondary to lymphangitic spread of neoplasm. In the right lower lobe, there is a 0.7 cm isolated nodule. There is no pleural effusion, pneumothorax or infiltrate. ABDOMEN/PELVIS: The visualized spleen, adrenal glands, kidneys, pancreas, stomach and duodenum are within normal limits. There are numerous arterial enhancing lesions throughout the liver. The largest lesion is seen in the lateral segment of the left hepatic lobe measuring up to 6.4 x 5.9 cm. There is an overall heterogeneous and underlying appearance of the liver that could be due to the presence of the multiple masses. Underlying hepatic cirrhosis cannot be excluded. There is atherosclerotic vascular disease. There is an increased number of mildly enlarged abdominal and retroperitoneal lymph nodes. These are seen most significantly in the gastrohepatic region with the largest measuring up to 1.5 x 1.4 cm. There is also some mild edema/infiltration into the retroperitoneum. There are several omental based nodules/masses seen most significantly in the midline with the largest measuring up to 1.8 x 1.6 cm. Multilevel degenerative disc changes of the thoracolumbar spine are seen. No free air is identified in the abdomen or pelvis. There is a trace amount of free fluid in the abdomen and pelvis. No findings of any bowel obstruction. The small bowel is within normal limits. There is colonic diverticulosis. There are no CT findings to suggest diverticulitis, however. There is some poor distention identified of the sigmoid colon with some wall thickening. Although wall thickening may be related to underdistention, diffuse nonspecific colitis cannot be entirely excluded. The appendix is visualized. There are no CT findings to suggest appendicitis. The uterus is atrophic. The patient does have some bilateral likely tubal ligation clips. There is poor distention of the bladder. Thickening of the bladder wall is more likely due to underdistention. A process such as cystitis or other infiltrative process cannot be excluded. Impression: 1. Right lower lobe pulmonary mass that could represent a bronchogenic neoplasm, metastatic lesion or enlarged hilar/perihilar lymph node. Reticular nodular densities in the right lower lobe could represent lymphangitic spread of neoplasm. 2. Multiple enlarged mediastinal lymph nodes. There is also increased number of mildly prominent abdominal and retroperitoneal lymph nodes with some edema/stranding in the retroperitoneum. 3. Multiple hepatic masses concerning for metastatic disease or multifocal hepatocellular carcinoma. There is suspected underlying cirrhosis. 4. Multiple midline omental nodules concerning for omental metastatic disease. 5. Colonic diverticulosis. 6. Indeterminate left thyroid nodule. Signed: Eber Matamoros MD Report Verified Date/Time: 09/01/2017 12:51:05 Reading Location: [facility] [id number] CT Body Reading Room with platelet count + automated diff (09/01/2017 7:31 AM)Only the most recent of3 resultswithin the time period is included. Component Value Ref Range WBC 6.5 3.5 - 10.5 K/L RBC 3.16 (L) 3.93 - 5.22 M/L Hemoglobin 9.5 (L) 11.2 - 15.7 GM/DL Hematocrit 29.1 (L) 34.1 - 44.9 % MCV 92.1 79.4 - 94.8 fL MCH 30.1 25.6 - 32.2 pg MCHC 32.6 32.2 - 35.5 GM/DL RDW 15.0 (H) 11.7 - 14.4 % Platelets 167 150 - 450 K/CU MM MPV 12.0 9.4 - 12.3 fL nRBC 0 0 - 0 /100 WBC % Neutros 64 % % Lymphs 26 % % Monos 7 % % Eos 2 % % Baso 1 % # Neutros 4.19 1.56 - 6.13 K/L # Lymphs 1.68 1.18 - 3.74 K/L # Monos 0.45 (H) 0.24 - 0.36 K/L # Eos 0.15 0.04 - 0.36 K/L # Baso 0.03 0.01 - 0.08 K/L Immature Granulocytes-Relative 1 0 - 1 % Specimen Performing Laboratory Blood [facility] [address] [address] CBC with platelet count + automated diff (09/01/2017 7:31 AM)Only the most recent of3 resultswithin the time period is included. Specimen Performing Laboratory Blood Narrative The following orders were created for panel order CBC with platelet count + automated diff. Procedure Abnormality Status --------- ------ CBC with platelet count ...[[id number]]AbnormalFinal result Please view results for these tests on the individual orders. Basic Metabolic Panel (09/01/2017 7:31 AM)Only the most recent of3 resultswithin the time period is included. Component Value Ref Range Sodium 138 136 - 145 meq/L Potassium 3.7 3.5 - 5.1 meq/L Chloride 104 98 - 107 meq/L CO2 25 22 - 29 meq/L BUN 10 7 - 21 mg/dL Creatinine 0.60 0.57 - 1.25 mg/dL Glucose 117 (H) 70 - 105 mg/dL Calcium 10.0 8.4 - 10.2 mg/dL EGFR 103Comment: ESTIMATED GFR IS NOT ACCURATE mL/min/1.73 sq m CREATININE CLEARANCE IN PREDICTING GLOMERULAR FILTRATION RATE. ESTIMATED GFR IS NOT APPLICABLE FOR DIALYSIS PATIENTS. Specimen Performing [place] [address] US abdomen limited (08/31/2017 8:21 AM) Specimen Performing Laboratory [facility] Narrative FINAL REPORT Right upper quadrant abdominal ultrasound Clinical History:Cirrhosis Discussion: Sonographic evaluation of the right upper quadrant of the abdomen is performed. The liver has normal size and measures 18.6 cm in length. The liver demonstrates heterogeneous echotexture with mildly lobulated contour, in addition, a 4.5 x 4.2 x 4.1 cm hyperechoic region is noted in the left hepatic lobe. Although this may represent focal fatty changes, an infiltrative neoplasm cannot be excluded. There is no intra or extrahepatic biliary dilatation. The common bile duct measures 5 mm. The gallbladder has normal appearance, without wall thickening, stones, or pericholecystic fluid.The main portal vein diameter is normal, measuring 9 mm. The pancreatic head, body, and proximal tail demonstrate no abnormality. There is no ascites. The right kidney measures 13.2 cm in length and is normal in size. There is no renal mass, hydronephrosis, or shadowing renal calculus. Segments of the inferior vena cava and aorta visualized demonstrate no abnormality. Impression: 1. Ill-defined hyperechoic region in the left hepatic lobe measuring up to 4.5 cm in diameter. This may represent focal fatty changes, however, a mass cannot be excluded. If indicated, further evaluation with MR using liver mass protocol is recommended. Signed: Martir Cameron MD Report Verified Date/Time:08/31/2017 09:46:26 Reading Location: [address] Ultrasound Reading Room Procedure Note Interface, External Ris In - 08/31/2017 9:48 AM CDT FINAL REPORT Right upper quadrant abdominal ultrasound Clinical History: Cirrhosis Discussion: Sonographic evaluation of the right upper quadrant of the abdomen is performed. The liver has normal size and measures 18.6 cm in length. The liver demonstrates heterogeneous echotexture with mildly lobulated contour, in addition, a 4.5 x 4.2 x 4.1 cm hyperechoic region is noted in the left hepatic lobe. Although this may represent focal fatty changes, an infiltrative neoplasm cannot be excluded. There is no intra or extrahepatic biliary dilatation. The common bile duct measures 5 mm. The gallbladder has normal appearance, without wall thickening, stones, or pericholecystic fluid. The main portal vein diameter is normal, measuring 9 mm. The pancreatic head, body, and proximal tail demonstrate no abnormality. There is no ascites. The right kidney measures 13.2 cm in length and is normal in size. There is no renal mass, hydronephrosis, or shadowing renal calculus. Segments of the inferior vena cava and aorta visualized demonstrate no abnormality. Impression: 1. Ill-defined hyperechoic region in the left hepatic lobe measuring up to 4.5 cm in diameter. This may represent focal fatty changes, however, a mass cannot be excluded. If indicated, further evaluation with MR using liver mass protocol is recommended. Signed: Martir Cameron MD Report Verified Date/Time: 08/31/2017 09:46:26 Reading Location: [address] Ultrasound Reading Room Calcium, Ionized (08/31/2017 4:09 AM) Component Value Ref Range Calcium, Ion 1.24 1.12 - 1.27 mmol/L pH, Blood 7.44 Specimen Performing Laboratory Blood - Arm, Right [address] [address] Hepatitis C antibody (08/31/2017 4:09 AM)Only the most recent of2 resultswithin the time period is included. Component Value Ref Range Hepatitis C Ab Nonreactive Nonreactive Specimen Performing Laboratory Blood - Arm, Right [address] [address] TRANSFUSION SERVICE REPORT - SCAN (08/30/2017 5:53 PM)REPORT OF PROCEDURE - ENDOSCOPY URL (08/30/2017 4:26 PM)Hemoglobin and hematocrit (08/30/2017 11:57 AM)Only the most recent of4 resultswithin the time period is included. Component Value Ref Range Hemoglobin 10.0 (L) 11.2 - 15.7 GM/DL Hematocrit 30.9 (L) 34.1 - 44.9 % Specimen Performing Laboratory Blood - Arm, Left [address] [address] Tissue Exam (08/30/2017 9:21 AM) Component Value Ref Range Case Report Surgical Pathology Report Case: [id number] Authorizing Provider:Fernando Matthews MD Collected: 08/30/2017920 Ordering Location: [place] [address] ICUReceived: 08/31/2017 0802 Pathologist: Tavia Brown MD Specimen:Stomach, random bx DIAGNOSIS STOMACH, RANDOM, BIOPSY: - MILD CHRONIC INACTIVE GASTRITIS - NEGATIVE FOR H. PYLORI BY WARTHIN-STARRY STAIN Signing Pathologist Direct Phone Line: [phone] CPT Code(s) 15171, 28259 CLINICAL HISTORY GI bleed SPECIMEN SOURCE Random stomach biopsy GROSS DESCRIPTION The specimen is received in a formalin-filled container and labeled with the patient's information and labeled "random stomach biopsy" and consists of three fragments of shah-white soft tissue ranging from 0.1 to 0.2 cm, submitted A1. CG/pl MICROSCOPIC DESCRIPTION Performed. Specimen Performing Laboratory Tissue - Stomach [address] [address] Urinalysis w/Microscopic (08/30/2017 5:14 AM) Component Value Ref Range Color, UA Light Yellow Clarity, UA Clear Specific [place], UA 1.014 1.001 - 1.035 pH, UA 5.0 5.0 - 8.0 Protein, UA Negative Negative Glucose, UA Negative Negative Ketones, UA Negative Negative Bilirubin, UA Negative Negative Blood, UA Negative Negative Nitrite, UA Negative Negative Leukocytes, UA Negative Negative Urobilinogen, UA 0.2 0.2 - 1.0 mg/dL RBC, UA 0 /HPF WBC, UA <1 /HPF Squam Epithel, UA 1 /HPF Crystals, Urine Rare Specimen Source Urine, Voided Specimen Performing Laboratory Urine - Urine, Voided [address] [address] Hepatitis B Panel (08/30/2017 5:05 AM) Component Value Ref Range Hep B Core Total Ab Nonreactive Nonreactive Hep B S Ab <8.0 <8.0 mIU/mL hepatitis B Surface Ag Nonreactive Nonreactive Specimen Performing Laboratory Blood - Arm, [address] [address] Hepatitis A Panel (08/30/2017 5:05 AM) Component Value Ref Range Hep A IgM Nonreactive Nonreactive Hep A IgG Nonreactive Nonreactive Specimen Performing Laboratory Blood - Arm, [address] [address] Hepatitis C PCR, Quantitative (08/30/2017 5:05 AM) Component Value Ref Range HCV PCR, Quantitative HCV RNA not detected HCV RNA not detected Specimen Performing Laboratory Blood - Arm, [address] [address] Narrative This test uses a Real-Time Polymerase Chain Reaction (RT-PCR) methodology and was performed using [employer] Ampliprep/DILLAN TaqMan HCV test kit version 2.0 ( [employer]). Reportable range for this assay is 15 - 100,000,000 IU per mL (1.18 - 8.00 Log IU/mL). Hepatic function panel (08/30/2017 5:05 AM) Component Value Ref Range Protein, Total 6.3 6.0 - 8.3 gm/dL Albumin 3.3 (L) 3.5 - 5.0 g/dL Total Bilirubin 1.0 0.2 - 1.2 mg/dL Bilirubin, Direct 0.6 (H) 0.1 - 0.5 mg/dL Alkaline Phosphatase 101 40 - 150 U/L AST 36 (H) 5 - 34 U/L ALT 16 6 - 55 U/L Specimen Performing Laboratory Blood - Arm, Left [address] [address] Type and screen, automated (08/29/2017 10:17 PM) Component Value Ref Range ABO/RH AUTOMATED (BEAKER) B POSITIVE Ab Scrn NEGATIVE Specimen Performing Laboratory Blood [address] [address] PT/aPTT (08/29/2017 10:17 PM) Component Value Ref Range Protime 17.1 (H) 11.7 - 14.7 seconds INR 1.4 <=5.9 PTT 40.5 (H) 22.5 - 36.0 seconds Specimen Performing Laboratory Blood [address] [address] Narrative RECOMMENDED COUMADIN/WARFARIN INR THERAPY RANGES STANDARD DOSE: 2.0 - 3.0 Includes: PROPHYLAXIS for venous thrombosis, systemic embolization; TREATMENT for venous thrombosis and/or pulmonary embolus. HIGH RISK: Target INR is 2.5-3.5 for patients with mechanical heart valves. Lactic acid, venous, whole blood (08/29/2017 10:17 PM) Component Value Ref Range Lactate, Venous 0.8 0.5 - 2.2 mmol/L Specimen Performing Laboratory Blood [address] [address] Narrative Effective 08/05/2015: Units/Reference Range Change New: 0.5-2.2 mmol/LPrevious: 5-20 mg/dL Alpha fetoprotein (AFP), tumor marker (08/29/2017 10:17 PM) Component Value Ref Range Alpha-Fetoprotein 4.0 <10.0 ng/mL Specimen Performing Laboratory Blood [address] [address] XR chest 1 view portable / bedside (08/29/2017 9:45 PM) Specimen Performing Laboratory GE RIS Narrative FINAL REPORT EXAMINATION: AP PORTABLE CHEST RADIOGRAPH CLINICAL INDICATION: Hypoxemia IMPRESSION: No comparison studies are available. Abnormal soft tissue fullness is noted in the superior mediastinum projecting along the right paratracheal space with mild associated right to left deviation of the trachea. Benign versus neoplastic. Asymmetric nodular soft tissue fullness is noted in the right infrahilar region. A component may reflect superimposed dilated pulmonary vessels. Again, a more aggressive pathologic process should also be considered. The heart size is normal. No evidence of pulmonary edema, large pleural effusion, pneumothorax or acute osseous abnormality. Chest CT recommended for the findings detailed above, preferably with IV contrast unless contraindicated. Signed: Giovanni Neal MD Report Verified Date/Time:08/29/2017 21:58:56 Reading Location: [address] Reading Room Procedure Note Interface, External Ris In - 08/29/2017 10:26 PM CDT FINAL REPORT EXAMINATION: AP PORTABLE CHEST RADIOGRAPH CLINICAL INDICATION: Hypoxemia IMPRESSION: No comparison studies are available. Abnormal soft tissue fullness is noted in the superior mediastinum projecting along the right paratracheal space with mild associated right to left deviation of the trachea. Benign versus neoplastic. Asymmetric nodular soft tissue fullness is noted in the right infrahilar region. A component may reflect superimposed dilated pulmonary vessels. Again, a more aggressive pathologic process should also be considered. The heart size is normal. No evidence of pulmonary edema, large pleural effusion, pneumothorax or acute osseous abnormality. Chest CT recommended for the findings detailed above, preferably with IV contrast unless contraindicated. Signed: Giovanni Neal MD Report Verified Date/Time: 08/29/2017 21:58:56 Reading Location: [address] Reading Room after 09/22/2016
--- OUTSIDE RECORDS SUMMARY | 2017-09-23 18:29 | XMS REPORT ---
:1960 [facility] [address] [place] [address] Care Team Providers Name Role Phone KARLOS RIBEIRO Unavailable Unavailable Problems This patient has no known problems. Allergies, Adverse Reactions, Alerts This patient has no known allergies or adverse reactions. Medications This patient has no known medications. Results Test Description Test Time Test Comments Text Results Atomic Results Result Comments CT, ABDOMEN 2017-09-05 14:06:00 Addendum BeginsREPORT STATUS:A The CT of the abdomen was performed with and without the administration of IV contrast. The CT of the chest and pelvis was performed with the administration of IV contrast. Signed: Eber Maldonado MDReport Verified Date/Time: 09/05/2017 14:06:19 Reading Location: [address] Ultrasound Reading RoomAddendum EndsFINAL REPORT HISTORY : eval for cirrhosis, alcohol [...] 6. Indeterminate left thyroid nodule. Signed: Eber Maldonado MDReport Verified Date/Time: 09/01/2017 12:51:05 Reading Location: [facility] C013Y CT Body Reading Room , CHEST, WITH CONTRAST 2017-09-05 14:06:00 Addendum BeginsREPORT STATUS: A The CT of the abdomen was performed with and without the administration of IV contrast. The CT of the chest and pelvis was performed with the administration of IV contrast. Signed: Eber Maldonado Verified Date/Time: 09/05/2017 14:06:19 Reading Location: [facility] [id number] Ultrasound Reading RoomAddendum EndsFINAL REPORT HISTORY : eval for cirrhosis, alcohol [...] 6. Indeterminate left thyroid nodule. Signed: Eber Maldonado MDReport Verified Date/Time: 09/01/2017 12:51:05 Reading Location: [facility] C013Y CT Body Reading Room UE EXAM 2017-09-01 09:06:00 Surgical Pathology Report Case: [id number] Authorizing Provider: Fernando Matthews MD Collected: [id number] Ordering Location: [place] [address] ICU Received: 08/31/2017 0802 Pathologist: Tavia Brown MD Specimen: Stomach, random bx STOMACH, RANDOM, BIOPSY: - MILD CHRONIC INACTIVE GASTRITIS - NEGATIVE FOR H. PYLORI BY WARTHIN-STARRY STAIN Signing Pathologist Direct Phone Line: [phone] signed by Tavia Brown MD on 09/01/2017 at 9:06 [id number], [id number] bleedRandom stomach biopsyThe specimen is received in a formalin-filled container and labeled with the patient's information and labeled "random stomach biopsy" and consists of three fragments of shah-white soft tissue ranging from 0.1 to 0.2 cm, submitted A1. CG/pl Performed. BASIC METABOLIC PANEL 2017-09-01 07:53:00 Test Item Value Reference Range Comments SODIUM (BEAKER) (test 138 meq/L 136-145 epdm=369) POTASSIUM (BEAKER) (test 3.7 meq/L 3.5-5.1 xrfe=909) CHLORIDE (BEAKER) (test 104 meq/L 98-107 zvpt=445) CO2 (BEAKER) (test 25 meq/L 22-29 momi=270) BLOOD UREA NITROGEN 10 mg/dL 7-21 (BEAKER) (test msje=688) CREATININE (BEAKER) (test 0.60 mg/dL 0.57-1.25 neej=710) GLUCOSE RANDOM (BEAKER) 117 mg/dL 70-105 (test rqte=631) CALCIUM (BEAKER) (test 10.0 mg/dL 8.4-10.2 rzgx=339) EGFR (BEAKER) (test 103 mL/min/1.73 sq m ESTIMATED GFR IS NOT juie=4887) ACCURATE CREATININE CLEARANCE IN PREDICTING GLOMERULAR FILTRATION RATE. ESTIMATED GFR IS NOT APPLICABLE FOR DIALYSIS PATIENTS. CBC W/PLT COUNT & AUTO [id number] 07:39:00 Test Item Value Reference Range Comments WHITE BLOOD CELL COUNT (BEAKER) (test xdxt=302) 6.5 K/ L 3.5-10.5 RED BLOOD CELL COUNT (BEAKER) (test ibyo=114) 3.16 M/ L 3.93-5.22 HEMOGLOBIN (BEAKER) (test qcqt=222) 9.5 GM/DL 11.2-15.7 HEMATOCRIT (BEAKER) (test rxhc=154) 29.1 % 34.1-44.9 MEAN CORPUSCULAR VOLUME (BEAKER) (test yplc=798) 92.1 fL 79.4-94.8 MEAN CORPUSCULAR HEMOGLOBIN (BEAKER) (test 30.1 pg 25.6-32.2 xtwz=538) MEAN CORPUSCULAR HEMOGLOBIN CONC (BEAKER) (test 32.6 GM/DL 32.2-35.5 pkfk=452) RED CELL DISTRIBUTION WIDTH (BEAKER) (test 15.0 % 11.7-14.4 nyso=630) PLATELET COUNT (BEAKER) (test lbof=127) 167 K/CU MM 150-450 MEAN PLATELET VOLUME (BEAKER) (test ytfh=111) 12.0 fL 9.4-12.3 NUCLEATED RED BLOOD CELLS (BEAKER) (test 0 /100 WBC 0-0 hjmf=567) NEUTROPHILS RELATIVE PERCENT (BEAKER) (test 64 % udja=578) LYMPHOCYTES RELATIVE PERCENT (BEAKER) (test 26 % hjxe=098) MONOCYTES RELATIVE PERCENT (BEAKER) (test 7 % hvdx=282) EOSINOPHILS RELATIVE PERCENT (BEAKER) (test 2 % ujnd=936) BASOPHILS RELATIVE PERCENT (BEAKER) (test 1 % pitr=488) NEUTROPHILS ABSOLUTE COUNT (BEAKER) (test 4.19 K/ L 1.56-6.13 mhuh=044) LYMPHOCYTES ABSOLUTE COUNT (BEAKER) (test 1.68 K/ L 1.18-3.74 jrdq=020) MONOCYTES ABSOLUTE COUNT (BEAKER) (test 0.45 K/ L 0.24-0.36 lzaf=705) EOSINOPHILS ABSOLUTE COUNT (BEAKER) (test 0.15 K/ L 0.04-0.36 qejj=280) BASOPHILS ABSOLUTE COUNT (BEAKER) (test 0.03 K/ L 0.01-0.08 iefy=474) IMMATURE GRANULOCYTES-RELATIVE PERCENT (BEAKER) 1 % 0-1 (test dmxc=1353) U/S, ABDOMINAL, [id number] 09:46:00Abdomen limited area? Add comment if clarification is needed.->LiverReason for exam:->cirrhosisShould this be performed at the bedside?->YesFINAL REPORT Right upper quadrant abdominal ultrasound Clinical [...] in size. There is no renal mass, hydronephrosis , or shadowing renal calculus. Segments of the inferior vena cava and aorta visualized demonstrate no abnormality. Impression: 1. Ill-defined hyperechoic region in the left hepatic lobe measuring up to 4.5 cm in diameter. This may represent focal fatty changes, however, a mass cannot be excluded. If indicated , further evaluation with MR using liver mass protocol is recommended. Signed: Martir Cameron MDReport Verified Date/Time: 08/31/2017 09:46:26 Reading Location: [address] Ultrasound Reading Room CALCIUM, [id number] 06:50:00 Test Item Value Reference Range Comments CALCIUM IONIZED (BEAKER) (test kegt=404) 1.24 mmol/L 1.12-1.27 PH, BLOOD (BEAKER) (test jgkj=5761) 7.44 HEPATITIS C [id number] 05:57:00 Test Item Value Reference Range Comments HEPATITIS C ANTIBODY (BEAKER) (test zgkn=939) Nonreactive Nonreactive BASIC METABOLIC [id number] 05:36:00 Test Item Value Reference Range Comments SODIUM (BEAKER) (test 138 meq/L 136-145 oyyq=782) POTASSIUM (BEAKER) (test 3.7 meq/L 3.5-5.1 agrm=527) CHLORIDE (BEAKER) (test 104 meq/L 98-107 rkrq=862) CO2 (BEAKER) (test 29 meq/L 22-29 pdjg=332) BLOOD UREA NITROGEN 11 mg/dL 7-21 (BEAKER) (test aayd=705) CREATININE (BEAKER) (test 0.56 mg/dL 0.57-1.25 yrwp=399) GLUCOSE RANDOM (BEAKER) 93 mg/dL 70-105 (test ukkx=498) CALCIUM (BEAKER) (test 10.1 mg/dL 8.4-10.2 vefb=198) EGFR (BEAKER) (test 111 mL/min/1.73 sq m ESTIMATED GFR IS NOT dter=9865) ACCURATE CREATININE CLEARANCE IN PREDICTING GLOMERULAR FILTRATION RATE. ESTIMATED GFR IS NOT APPLICABLE FOR DIALYSIS PATIENTS. CBC W/PLT COUNT & AUTO [id number] 05:16:00 Test Item Value Reference Range Comments WHITE BLOOD CELL COUNT (BEAKER) (test ywpe=380) 7.2 K/ L 3.5-10.5 RED BLOOD CELL COUNT (BEAKER) (test fqux=786) 3.19 M/ L 3.93-5.22 HEMOGLOBIN (BEAKER) (test zjxe=107) 9.2 GM/DL 11.2-15.7 HEMATOCRIT (BEAKER) (test kzea=681) 28.9 % 34.1-44.9 MEAN CORPUSCULAR VOLUME (BEAKER) (test fpgd=589) 90.6 fL 79.4-94.8 MEAN CORPUSCULAR HEMOGLOBIN (BEAKER) (test 28.8 pg 25.6-32.2 jvmj=466) MEAN CORPUSCULAR HEMOGLOBIN CONC (BEAKER) (test 31.8 GM/DL 32.2-35.5 odvg=740) RED CELL DISTRIBUTION WIDTH (BEAKER) (test 15.1 % 11.7-14.4 pdur=357) PLATELET COUNT (BEAKER) (test lrag=652) 168 K/CU MM 150-450 MEAN PLATELET VOLUME (BEAKER) (test lztt=266) 12.2 fL 9.4-12.3 NUCLEATED RED BLOOD CELLS (BEAKER) (test 0 /100 WBC 0-0 vruh=342) NEUTROPHILS RELATIVE PERCENT (BEAKER) (test 59 % tgqo=160) LYMPHOCYTES RELATIVE PERCENT (BEAKER) (test 29 % dzon=194) MONOCYTES RELATIVE PERCENT (BEAKER) (test 8 % yehx=984) EOSINOPHILS RELATIVE PERCENT (BEAKER) (test 4 % zutw=054) BASOPHILS RELATIVE PERCENT (BEAKER) (test 1 % zmnv=862) NEUTROPHILS ABSOLUTE COUNT (BEAKER) (test 4.25 K/ L 1.56-6.13 qicu=976) LYMPHOCYTES ABSOLUTE COUNT (BEAKER) (test 2.05 K/ L 1.18-3.74 xegj=758) MONOCYTES ABSOLUTE COUNT (BEAKER) (test 0.55 K/ L 0.24-0.36 umlk=559) EOSINOPHILS ABSOLUTE COUNT (BEAKER) (test 0.25 K/ L 0.04-0.36 ezjb=182) BASOPHILS ABSOLUTE COUNT (BEAKER) (test 0.05 K/ L 0.01-0.08 vxhs=683) IMMATURE GRANULOCYTES-RELATIVE PERCENT (BEAKER) 0 % 0-1 (test tmrp=7840) HEPATITIS C PCR, [id number] 14:12:00 Test Item Value Reference Range Comments HCV RESULT COMPONENT (BEAKER) HCV RNA not detected HCV RNA not detected (test pwkn=1684) This test uses a Real-Time Polymerase Chain Reaction (RT-PCR) methodology and was performed using [employer] Ampliprep/DILLAN TaqMan HCV test kit version 2.0 ( [employer]).Reportable range for this assay is 15 - 100,000, 000 IU per mL (1.18 - 8.00 Log IU/mL).HEMOGLOBIN AND [id number] 12:40: 00 Test Item Value Reference Range Comments HEMOGLOBIN (BEAKER) (test iunx=890) 10.0 GM/DL 11.2-15.7 HEMATOCRIT (BEAKER) (test cvcj=158) 30.9 % 34.1-44.9 URINALYSIS W/ [id number] 08:18:00 Test Item Value Reference Range Comments COLOR (BEAKER) (test amrw=576) Light Yellow CLARITY (BEAKER) (test guns=514) Clear SPECIFIC GRAVITY UA (BEAKER) (test kndl=440) 1.014 1.001-1.035 PH UA (BEAKER) (test vmws=994) 5.0 5.0-8.0 PROTEIN UA (BEAKER) (test tmut=607) Negative Negative GLUCOSE UA (BEAKER) (test sbdn=831) Negative Negative KETONES UA (BEAKER) (test hnnw=329) Negative Negative BILIRUBIN UA (BEAKER) (test fpln=153) Negative Negative BLOOD UA (BEAKER) (test ljfb=313) Negative Negative NITRITE UA (BEAKER) (test eaet=368) Negative Negative LEUKOCYTE ESTERASE UA (BEAKER) (test pzjw=284) Negative Negative UROBILINOGEN UA (BEAKER) (test rvte=268) 0.2 mg/dL 0.2-1.0 RBC UA (BEAKER) (test hnjj=160) 0 /HPF WBC UA (BEAKER) (test ofry=757) < /HPF SQUAMOUS EPITHELIAL (BEAKER) (test ldey=572) 1 /HPF CRYSTALS, URINE (BEAKER) (test kqgf=7264) Rare SOURCE(BEAKER) (test apcn=0661) Urine, Voided HEPATITIS B [id number] 07:06:00 Test Item Value Reference Range Comments HEPATITIS B CORE TOTAL ANTIBODY (BEAKER) (test Nonreactive Nonreactive mhnq=002) HEPATITIS B SURFACE ANTIBODY (BEAKER) (test < mIU/mL <8.0 edof=216) HEPATITIS B SURFACE ANTIGEN (2) (BEAKER) (test Nonreactive Nonreactive hwju=2831) HEPATITIS C [id number] 06:01:00 Test Item Value Reference Range Comments HEPATITIS C ANTIBODY (BEAKER) (test yqma=617) Nonreactive Nonreactive HEPATITIS A [id number] 06:01:00 Test Item Value Reference Range Comments HEPATITIS A IGM ANTIBODY (BEAKER) (test Nonreactive Nonreactive ildb=644) HEPATITIS A IGG ANTIBODY (BEAKER) (test Nonreactive Nonreactive vzxp=9737) HEPATIC FUNCTION [id number] 05:42:00 Test Item Value Reference Range Comments TOTAL PROTEIN (BEAKER) (test lfce=566) 6.3 gm/dL 6.0-8.3 ALBUMIN (BEAKER) (test owqo=5235) 3.3 g/dL 3.5-5.0 BILIRUBIN TOTAL (BEAKER) (test kiky=537) 1.0 mg/dL 0.2-1.2 BILIRUBIN DIRECT (BEAKER) (test djqi=233) 0.6 mg/dL 0.1-0.5 ALKALINE PHOSPHATASE (BEAKER) (test fqni=515) 101 U/L 40-150 AST (SGOT) (BEAKER) (test ghxj=533) 36 U/L 5-34 ALT (SGPT) (BEAKER) (test vmdc=509) 16 U/L 6-55 BASIC METABOLIC [id number] 05:42:00 Test Item Value Reference Range Comments SODIUM (BEAKER) (test 140 meq/L 136-145 itls=262) POTASSIUM (BEAKER) (test 4.0 meq/L 3.5-5.1 peeg=516) CHLORIDE (BEAKER) (test 108 meq/L 98-107 xvbf=058) CO2 (BEAKER) (test 28 meq/L 22-29 gqkx=327) BLOOD UREA NITROGEN 21 mg/dL 7-21 (BEAKER) (test xvvh=108) CREATININE (BEAKER) (test 0.56 mg/dL 0.57-1.25 uttp=932) GLUCOSE RANDOM (BEAKER) 86 mg/dL 70-105 (test jght=908) CALCIUM (BEAKER) (test 10.3 mg/dL 8.4-10.2 fixf=999) EGFR (BEAKER) (test 111 mL/min/1.73 sq m ESTIMATED GFR IS NOT oowr=1800) ACCURATE CREATININE CLEARANCE IN PREDICTING GLOMERULAR FILTRATION RATE. ESTIMATED GFR IS NOT APPLICABLE FOR DIALYSIS PATIENTS. HEMOGLOBIN AND [id number] 05:19:00 Test Item Value Reference Range Comments HEMOGLOBIN (BEAKER) (test nhmj=811) 10.0 GM/DL 11.2-15.7 HEMATOCRIT (BEAKER) (test bgke=367) 31.3 % 34.1-44.9 CBC W/PLT COUNT & AUTO [id number] 05:19:00 Test Item Value Reference Range Comments WHITE BLOOD CELL COUNT (BEAKER) (test smdy=155) 7.3 K/ L 3.5-10.5 RED BLOOD CELL COUNT (BEAKER) (test grbz=789) 3.43 M/ L 3.93-5.22 HEMOGLOBIN (BEAKER) (test ufnf=479) 10.0 GM/DL 11.2-15.7 HEMATOCRIT (BEAKER) (test jojj=240) 31.3 % 34.1-44.9 MEAN CORPUSCULAR VOLUME (BEAKER) (test aaxj=605) 91.3 fL 79.4-94.8 MEAN CORPUSCULAR HEMOGLOBIN (BEAKER) (test 29.2 pg 25.6-32.2 qjyj=257) MEAN CORPUSCULAR HEMOGLOBIN CONC (BEAKER) (test 31.9 GM/DL 32.2-35.5 wbvf=965) RED CELL DISTRIBUTION WIDTH (BEAKER) (test 14.9 % 11.7-14.4 aqct=795) PLATELET COUNT (BEAKER) (test pxms=889) 183 K/CU MM 150-450 MEAN PLATELET VOLUME (BEAKER) (test dbni=205) 12.0 fL 9.4-12.3 NUCLEATED RED BLOOD CELLS (BEAKER) (test 0 /100 WBC 0-0 fykj=288) NEUTROPHILS RELATIVE PERCENT (BEAKER) (test 56 % cpuc=058) LYMPHOCYTES RELATIVE PERCENT (BEAKER) (test 34 % pcdx=318) MONOCYTES RELATIVE PERCENT (BEAKER) (test 7 % rvoa=668) EOSINOPHILS RELATIVE PERCENT (BEAKER) (test 3 % pliu=620) BASOPHILS RELATIVE PERCENT (BEAKER) (test 1 % kpdm=681) NEUTROPHILS ABSOLUTE COUNT (BEAKER) (test 4.08 K/ L 1.56-6.13 ylqu=892) LYMPHOCYTES ABSOLUTE COUNT (BEAKER) (test 2.43 K/ L 1.18-3.74 fuyo=407) MONOCYTES ABSOLUTE COUNT (BEAKER) (test 0.50 K/ L 0.24-0.36 uujo=382) EOSINOPHILS ABSOLUTE COUNT (BEAKER) (test 0.18 K/ L 0.04-0.36 rtbo=029) BASOPHILS ABSOLUTE COUNT (BEAKER) (test 0.04 K/ L 0.01-0.08 tcqa=714) IMMATURE GRANULOCYTES-RELATIVE PERCENT (BEAKER) 0 % 0-1 (test yfer=4211) HEMOGLOBIN AND [id number] 01:17:00 Test Item Value Reference Range Comments HEMOGLOBIN (BEAKER) (test ezuf=368) 9.9 GM/DL 11.2-15.7 HEMATOCRIT (BEAKER) (test wwfg=046) 30.7 % 34.1-44.9 ALPHA FETOPROTEIN (AFP), TUMOR [id number] 23:14:00 Test Item Value Reference Range Comments ALPHA-FETOPROTEIN (BEAKER) (test iikl=3185) 4.0 ng/mL <10.0 LACTIC ACID, VENOUS, WHOLE [id number] 22:44:00 Test Item Value Reference Range Comments LACTATE BLOOD VENOUS (2) (BEAKER) (test 0.8 mmol/L 0.5-2.2 qvbf=3848) Effective 08/05/2015: Units/Reference Range ChangeNew: 0.5-2.2 mmol/L Previous: 5 -20 mg/dLPT/[id number] 22:39:00 Test Item Value Reference Range Comments PROTIME (BEAKER) (test xcxw=796) 17.1 seconds 11.7-14.7 INR (BEAKER) (test yhbr=997) 1.4 <=5.9 PARTIAL THROMBOPLASTIN TIME (BEAKER) (test 40.5 seconds 22.5-36.0 dewi=982) RECOMMENDED COUMADIN/WARFARIN INR THERAPY RANGESSTANDARD DOSE: 2.0 - 3.0 Includes: PROPHYLAXIS forvenous thrombosis, systemic embolization; TREATMENT for venous thrombosis and/or pulmonary embolus.HIGH RISK: Target INR is 2.5-3.5 for patients with mechanical heart valves.HEMOGLOBIN AND [id number] 22 :25:00 Test Item Value Reference Range Comments HEMOGLOBIN (BEAKER) (test ievo=891) 10.4 GM/DL 11.2-15.7 HEMATOCRIT (BEAKER) (test hnpf=220) 32.5 % 34.1-44.9 RAD, CHEST, 1 VIEW, NON [id number] 21:58:00Post-intubationReason for exam:-& gt;hypoxemiaShould this be performed at the bedside?->YesFINAL REPORT EXAMINATION: AP PORTABLE CHEST RADIOGRAPH CLINICAL [...] preferably with IV contrast unless contraindicated. Signed: Brennon Neal [facility]epf[facility] [place] Verified Date/Time: 08/29/2017 21:58:56 Reading Location: [address] Reading Room
[2017-09-23 18:42] LABS: Absolute Lymphocytes (CBC) 1.1 K/uL (0.7-4.9); Absolute Monocytes 1.1 K/uL (0.1-1.3); Absolute Neutrophil 17.6 K/uL (1.8-8.0); Basophils % 0.4 % (0-1.3); Hematocrit 36.8 % (36.0-45.0); Lymphocytes % 5.7 % (15.3-44.8); MCH 26.4 pg (27.0-35.0); MPV 10.2 fL (7.6-11.3); Monocytes % 5.6 % (3.3-12.3); RBC Red Blood Cell Count 4.44 M/uL (3.86-4.86)
[2017-09-23] MEDS ORDERED: RSI MEDICATION KIT IV ONE ×2 (18:45→18:53)
[2017-09-23] MEDS ORDERED: PROPOFOL 1,000 MG/100 ML VIAL IV ONE (18:53)
[2017-09-23] MEDS ORDERED: NA CHLORIDE 0.9% 2,000 ML ONE (18:53)
[2017-09-23] MEDS ORDERED: MIDAZOLAM HCL 2 MG/2 ML INJ ONE ×2 (18:53→18:54)
[2017-09-23] MEDS ORDERED: FOSPHENYTOIN PE 1,000 MG in NA CHLORIDE 0.9% 100 ML IV ONE (19:00)
--- NOTE | 2017-09-23 19:09 | ER ---
Nurse's Notes [facility] Name: Lcuie Sinclair Age: 57 yrs Sex: Female : 1960 Arrival Date: 09/23/2017 Time: 18:27 Bed 2 Private MD: Gio Hernandez T Diagnosis: ICH, metastatic CA, brain mets, hypokalemia, hypercalcemia, Rhabdo Presentation: 09/23 18:22 Presenting complaint: EMS states: pt was found face down, with snoring respirations, pt iw was last seen yesterday, did not show up for work today, pt has bruising to left side of chest, left hip/thigh, left shoulder. EMS reports crepitus to chest wall, possible broken ribs. 18:22 Acuity: RJ 1 iw 18:22 Care prior to arrival: nasal trumpet, Cervical collar in place. IV initiated. 18 GA, in iw the right wrist, Glucose check: 130 Oxygen administered. via a non-rebreather mask. Mechanism of Injury: Fall. Trauma event details: Injury occurred in the [facility], Injury occurred: at home. Injury occurred: September 23, 2017. 18:22 Method Of Arrival: EMS: [facility] iw 18:22 Transition of care: patient was not received from another setting of care. Onset of iw symptoms was September 23, 2017. Risk Assessment: Do you want to hurt yourself or someone else? Patient reports no desire to harm self or others. Initial Sepsis Screen: Does the patient meet any 2 criteria? Altered Mental Status. HR > 90 bpm. Does the patient have a suspected source of infection? No. Patient's initial sepsis screen is negative. Trauma Activation: Stat Physician: ED Physician; Name: Dr. Serna; Notified At: 18:16; Arrived At: 18:16 Physician: General Surgeon; Name: Dr. Palm; Notified At: 18:16; Arrived At: 18:32 Physician: Radiology; Name: Viviana; Notified At: 18:16; Arrived At: 18:16 Physician: Respiratory; Name: Tamia; Notified At: 18:16; Arrived At: 18:30 Physician: Nellie; Name: N/A; Notified At: 18:16; Arrived At: Specialty not needed Historical: - Allergies: 19:23 NKA; iw - Home Meds: 19:55 Unable to obtain [Active]; iw - PMHx: 19:22 Arthritis; Depression; pinched nerve in neck and lower back; iw - PSHx: 19:22 None; iw - Immunization history: Last tetanus immunization: unknown. - Social history:: Smoking status: unknown. - Ebola Screening: : Patient negative for fever greater than or equal to 101.5 degrees Fahrenheit, and additional compatible Ebola Virus Disease symptoms Patient denies exposure to infectious person Patient denies travel to an Ebola-affected area in the 21 days before illness onset No symptoms or risks identified at this time. Screenin:10 Abuse screen: Denies threats or abuse. Denies injuries from another. Tuberculosis iw screening: No symptoms or risk factors identified. 19:45 Nutritional screening: No deficits noted. Fall Risk IV access (20 points). iw Primary Survey: 18:22 A: Airway: compromised, maintained via nasal trumpet, Oxygen via non-rebreather at 15 iw liters per minute. Oral cavity: clear, gag reflex present, Trachea midline. Breathing/Chest: Respiratory pattern: snoring, Respiratory effort: labored, shallow, Breath sounds: diminished, bilaterally. Chest inspection: symmetrical rise and fall of the chest. Circulation: Cardiac rhythm: sinus tachycardia Heart tones present. Pulses: palpable right femoral artery, left femoral artery, left carotid pulse and right carotid pulse. Skin color: pale, Skin temperature: cool. Disability Painful Stimuli. 18:28 Reassessment Airway Airway Nasal trumpet Oxygen Non-rebreather Breathing/Chest iw Respiratory pattern Snoring Respiratory effort Labored Breath sounds Diminished Chest inspection Symmetrical Circulation Heart rhythm Sinus tach Pulses Palpable Color Pale Temperature Cool Disability Painful stimuli. 19:00 Reassessment Airway Airway Oral intubation Breathing/Chest Respiratory pattern Regular iw Respiratory effort Unlabored Breath sounds Diminished Chest inspection Symmetrical Circulation Heart rhythm Sinus rhythm Pulses Palpable Color Pale Temperature Cool Disability Unconscious. Secondary Survey: 18:23 HEENT: Head Other no obvious bruising noted to head or face, no abrasions or hematomas iw noted to head or face Eyes: No injury or deformity noted. to bilateral eyes. Ears: clear bilaterally. Nose: clear to bilateral nares. Throat: with gag reflex present. Gastrointestinal: Abdomen is soft, Bowel sounds present in all quadrants. Musculoskeletal: Range of motion: limited in left shoulder, left hip and left knee Crepitus absent. Pelvis non-tender with pelvic rock. Injury Description: Bruise sustained to left hip and posterior aspect of left shoulder is purple. Injury Description: Bruise sustained to right quadriceps is purple. Assessment: 18:22 General: Appears uncomfortable, ill, Behavior is unresponsive. Pain: Noted to be iw withdrawn. Neuro: Level of Consciousness is listless, unresponsive, Oriented to none Surface To Air Weapons Officer are weak on left. Cardiovascular: Capillary refill is > 3 seconds in bilateral fingers. Respiratory: Airway obstructed, via nasal trumpet Trachea midline Respiratory effort is labored, shallow, weak, Respiratory pattern is snoring Breath sounds are diminished bilaterally. Crepitus is absent. GI: Abdomen is round Abd is soft X 4 quads. Musculoskeletal: Range of motion: limited in all extremities. 18:30 Reassessment: CXR obtained prior to CT, per verbal order Dr. Serna, anaesthetic technician reports iw both scanners are full at this time. 18:32 Reassessment: pt transported to Ct with RN, with RT, with anaesthetic technician. iw 18:32 Reassessment: Dr. Palm in dept, pt remains in CT at this time. iw 18:51 Reassessment: pt transported back to ER bed 2 with RT, with eeg technician, with Azucena RN. iw VSS, Dr. Palm at bedside to assess pt. pt log rolled to right, with C-Spine precautions, assessed by Dr. Palm. 18:55 Reassessment: ER staff setting up for intubation, pt still with snoring respirations, iw not moving left side, withdrawal from pain on right side. 18:59 Reassessment: pt successfully intubated after 2 attempts, VSS, pt placed on vent by RT. iw 19:10 Reassessment: Unable to obtain OG tube placement, MD stated to not try again due to tl2 masses in neck. 19:40 Reassessment: Report called to ER, [facility] ETA 20 mins. tl2 19:45 Reassessment: Family at bedside, transfer form completed. Pt's VS remain stable, tl2 Propofol infusing at 5 mcg/min. 20:18 Reassessment: V.O received from Dr. Palm to give 40 meq of IV Potassium to [facility] crew to infuse en route. Will document on Adly. Reassessment: Pt placed on backboard, intubated, mata in place. Propofol infusing at 5 mcg/min. IV sites intact, patent. Report given to [facility] crew. Vital Signs: 18:22 BP 169 / 94; Pulse 103; Resp 12 S; Temp 96.6(R); Pulse Ox 98% on Non-rebreather mask; iw Weight 61.23 kg; Height 5 ft. 7 in. (170.18 cm); Pain 6/10; 18:35 BP 167 / 91; Pulse 88; Resp 14 S; Temp 96.0; Pulse Ox 100% on 2 lpm NC; Pain 0/10; iw 18:45 BP 158 / 94; Pulse 93; Resp 14 S; Pulse Ox 100% on 2 lpm NC; aa5 18:55 BP 171 / 99; Pulse 92; Resp 16 S; Pulse Ox 97% on 2 lpm NC; aa5 19:00 BP 180 / 107; Pulse 93; Resp 16 A; Pulse Ox 100% on ETT ambu; aa5 19:10 BP 145 / 87; Pulse 82; Resp 16 A; Pulse Ox 100% on ETT vent; Pain 0/10; iw 19:20 BP 122 / 77; Pulse 78; Resp 16 A; Pulse Ox 100% on ETT vent; aa5 19:36 BP 120 / 76; Pulse 65; Resp 16; Temp 94.4; Pulse Ox 100% on 60% FiO2 ETT vent; tl2 19:50 BP 127 / 80; Pulse 62; Resp 16; Temp 96.9(C); Pulse Ox 100% on 60% FiO2 ETT vent; tl2 18:22 Body Mass Index 21.14 (61.23 kg, 170.18 cm) iw Wally Coma Score: 18:22 Eye Response: spontaneous(4). Verbal Response: none(1). Motor Response: withdraws from iw pain(4). Total: 9. 18:35 Eye Response: spontaneous(4). Verbal Response: none(1). Motor Response: withdraws from iw pain(4). Total: 9. Trauma Score (Adult): 18:22 Eye Response: spontaneous(1); Verbal Response: none(0); Motor Response: withdraws from iw pain(1); Systolic BP: > 89 mm Hg(4); Respiratory Rate: 10 to 29 per min(4); Wally Score: 9; Trauma Score: 10 18:35 Eye Response: spontaneous(1); Verbal Response: none(0); Motor Response: withdraws from iw pain(1); Systolic BP: > 89 mm Hg(4); Respiratory Rate: 10 to 29 per min(4); Wally Score: 9; Trauma Score: 10 19:00 Eye Response: none(0); Verbal Response: none(0); Motor Response: none(0); Systolic BP: iw None(0); Respiratory Rate: None(0); [place] Score: 3; Trauma Score: 0 19:20 Eye Response: none(0); Verbal Response: none(0); Motor Response: none(0); Systolic BP: iw None(0); Respiratory Rate: None(0); [place] Score: 3; Trauma Score: 0; pt intubated ED Course: 18:22 Maintain EMS IV. Dressing intact. Good blood return noted. Site clean \T\ dry. Gauge \T\ iw site: 18 right wrist. Maintain EMS IV. Dressing intact. Good blood return noted. Site clean \T\ dry. Gauge \T\ site: 20 LAC. 18:24 incinerator plant supervisor on. Pulse ox on. NIBP on. iw 18:25 Patient has correct armband on for positive identification. Placed in gown. Bed in low iw position. Call light in reach. Side rails up X2. Oxygen administration via non-rebreather mask. 18:25 Oxygen administration via non-rebreather mask \T\ 15L/min Response to oxygen therapy: iw symptoms improved. 18:27 Patient arrived in ED. jb7 18:27 Gio Hernandez MD is Private Physician. jb7 18:28 Emil Carrasco, LESLEY is Primary Nurse. jl7 18:30 Caleb Serna MD is Attending Physician. kdr 18:30 Farideh Gustafson, LESLEY is Primary Nurse. iw 18:34 Triage completed. iw 18:35 Thermoregulation: warm blanket given to patient. iw 18:37 X-ray completed. Portable x-ray completed in exam room. Patient tolerated procedure la2 well. 18:43 CXR XRAY In Process Unspecified. EDMS 18:54 CT completed. Patient moved to CT via stretcher. Patient moved back from CT. cw1 18:55 CT Traumagram (Head C Spine CAP wo con) In Process Unspecified. EDMS 18:59 Assisted provider with intubation using 7.0 mm ETT via oral route. ET tube secured at iw 22cm at the lips. Set up intubation tray. Intubated by Camilla Rodriguez GAS FLOW REGULATOR-C Placement verified by CO2 detector w/ + color change, auscultating bilateral breath sounds, Patient tolerated well. 19:15 Mata cath inserted, using sterile technique, 18 Fr., by it technical specialist, balloon inflated, to iw gravity drainage, other Criticore Mata inserted by Noah hvac engineering technician returned clear yellow urine. Patient tolerated well. 19:53 Primary Nurse role handed off by Farideh Gustafson RN sp 20:15 Arm band placed on right wrist. tl2 20:15 Patient transferred, IV remains in place. tl2 Administered Medications: 18:55 Drug: Lidocaine 100 mg Route: IVP; Site: left antecubital; iw 18:59 Follow up: Response: No adverse reaction iw 18:56 Drug: Etomidate 20 mg Route: IVP; Site: left antecubital; iw 18:59 Follow up: Response: No adverse reaction; Patient is sedated iw 18:56 Drug: VecuroNIUM 10 mg Route: IVP; Site: left antecubital; iw 18:59 Follow up: Response: No adverse reaction; Patient is sedated iw 18:59 Drug: NS 0.9% 1000 ml Route: IV; Rate: 1000 ml; Site: left antecubital; iw 20:20 Follow up: IV Status: Completed infusion; IV Intake: 1000ml tl2 19:03 Drug: CEREbyx 1 grams Route: IVPB; Site: right wrist; iw 20:20 Follow up: IV Status: Completed infusion tl2 19:03 Drug: Propofol 5 mcg/kg/min Route: IV; Rate: calculated rate; Site: left antecubital; iw 20:20 Follow up: IV Status: Infusion continued upon transfer tl2 20:22 Not Given (Given to [facility] Crew): Potassium Chloride 40 mEq IV at calculated rate tl2 once; administer over 1-[address] Palm give to [facility] Intake: 20:15 IV: 1000ml (IV Fluid); Total: 1000ml. tl2 20:20 IV: 1000ml; Total: 2000ml. tl2 Outcome: 19:09 ER care complete, transfer ordered by . kdr 20:14 Transferred by helicopter to [facility], Transfer form completed. tl2 20:14 critical 20:14 Discharge instructions given to family, Instructed on the need for transfer. 20:15 Patient's length of stay was not longer than 2 hours. tl2 20:22 Patient left the ED. tl2 Signatures: Dispatcher [employer] EDMS Caleb Serna MD MD kdr Moni Terrell Irene RN RN iw Azucena Nolan RN RN aa5 Jayshree Simental cw1 Sita Bazan RN RN tl2 Emil Carrasco RN RN jl7 Tello Weston jb7 Viviana Conti la2 Corrections: (The following items were deleted from the chart) 18:34 18:22 Presenting complaint: EMS states: pt was found face down, with snoring iw respirations iw 19: 18:22 Presenting complaint: EMS states: pt was found face down, with snoring iw respirations iw 19 18:22 Trauma Activation: Stat iw iw 19:30 18:22 BP 169 / 94; Pulse 103bpm; Resp 12bpm; Spontaneous; Pulse Ox 98% Non-rebreather iw mask; 61.23 kg; Height 5 ft. 7 in.; BMI: 21.1; Pain 6/10; iw 19:30 18:35 BP 167 / 91; Pulse 88bpm; Resp 14bpm; Spontaneous; Pulse Ox 100% 2 lpm Nasal iw Cannula; aa5 09/24 08:37 06 18:22 Presenting complaint: EMS states: pt was found face down, with snoring iw respirations, pt was last seen yesterday, did not show up for work today, pt has bruising to left side of chest, left hip/thigh, left shoulder iw
--- NOTE | 2017-09-23 19:09 | EDPHYS ---
Physician Documentation [facility] Name: Lucie Sinclair Age: 57 yrs Sex: Female : 1960 Arrival Date: 09/23/2017 Time: 18:27 Bed 2 Private MD: Gio Hernandez T ED Physician Caleb Serna HPI: 09/23 19:09 This 57 yrs old Female presents to ER via EMS with complaints of kdr Unresponsive, Fall Injury. 19:09 Details of fall: The patient fell. kdr 19:10 The patient presents with decreased responsiveness. Onset: The symptoms/episode kdr began/occurred at an unknown time. The patient was found down and had not been seen today.. Historical: - Allergies: 19:23 NKA; iw - Home Meds: 19:55 Unable to obtain [Active]; iw - PMHx: 19:22 Arthritis; Depression; pinched nerve in neck and lower back; iw - PSHx: 19:22 None; iw - Immunization history: Last tetanus immunization: unknown. - Social history:: Smoking status: unknown. - Ebola Screening: : Patient negative for fever greater than or equal to 101.5 degrees Fahrenheit, and additional compatible Ebola Virus Disease symptoms Patient denies exposure to infectious person Patient denies travel to an Ebola-affected area in the 21 days before illness onset No symptoms or risks identified at this time. ROS: 19:28 Constitutional: Unobtainable kdr 19:28 Unable to obtain ROS due to comatose state. Exam: 19:28 Constitutional: This is a well developed, well nourished patient who is obtunded and kdr only responsive to pain Head/Face: Normocephalic, atraumatic. Neck: Trachea midline, no thyromegaly or masses palpated, and no cervical lymphadenopathy. Supple, full range of motion without nuchal rigidity, or vertebral point tenderness. No Meningismus. Cardiovascular: Regular rate and rhythm with a normal S1 and S2. No gallops, murmurs, or rubs. Normal PMI, no JVD. No pulse deficits. Back: No spinal tenderness. No costovertebral tenderness. Full range of motion. 19:28 Eyes: Pupils: 3 mm R, 2 mm l sluggish. 19:28 Neck: Lymph nodes: lymphadenopathy is appreciated, all areas. 19:28 Chest/axilla: Inspection: ecchymosis, that is mild, of the left lateral posterior chest and left lateral anterior chest 19:28 Respiratory: Respirations: shallow respirations, that is mild, Breath sounds: rales, + upper airway congestion. 19:28 Abdomen/GI: Inspection: distension, that is mild, Multiple masses. 19:28 Neuro: Not moving LUE, responds to painful stimulation only. Vital Signs: 18:22 BP 169 / 94; Pulse 103; Resp 12 S; Temp 96.6(R); Pulse Ox 98% on Non-rebreather mask; iw Weight 61.23 kg; Height 5 ft. 7 in. (170.18 cm); Pain 6/10; 18:35 BP 167 / 91; Pulse 88; Resp 14 S; Temp 96.0; Pulse Ox 100% on 2 lpm NC; Pain 0/10; iw 18:45 BP 158 / 94; Pulse 93; Resp 14 S; Pulse Ox 100% on 2 lpm NC; aa5 18:55 BP 171 / 99; Pulse 92; Resp 16 S; Pulse Ox 97% on 2 lpm NC; aa5 19:00 BP 180 / 107; Pulse 93; Resp 16 A; Pulse Ox 100% on ETT ambu; aa5 19:10 BP 145 / 87; Pulse 82; Resp 16 A; Pulse Ox 100% on ETT vent; Pain 0/10; iw 19:20 BP 122 / 77; Pulse 78; Resp 16 A; Pulse Ox 100% on ETT vent; aa5 19:36 BP 120 / 76; Pulse 65; Resp 16; Temp 94.4; Pulse Ox 100% on 60% FiO2 ETT vent; tl2 19:50 BP 127 / 80; Pulse 62; Resp 16; Temp 96.9(C); Pulse Ox 100% on 60% FiO2 ETT vent; tl2 18:22 Body Mass Index 21.14 (61.23 kg, 170.18 cm) iw [place] Coma Score: 18:22 Eye Response: spontaneous(4). Verbal Response: none(1). Motor Response: withdraws from iw pain(4). Total: 9. 18:35 Eye Response: spontaneous(4). Verbal Response: none(1). Motor Response: withdraws from iw pain(4). Total: 9. Trauma Score (Adult): 18:22 Eye Response: spontaneous(1); Verbal Response: none(0); Motor Response: withdraws from iw pain(1); Systolic BP: > 89 mm Hg(4); Respiratory Rate: 10 to 29 per min(4); Wally Score: 9; Trauma Score: 10 18:35 Eye Response: spontaneous(1); Verbal Response: none(0); Motor Response: withdraws from iw pain(1); Systolic BP: > 89 mm Hg(4); Respiratory Rate: 10 to 29 per min(4); Wally Score: 9; Trauma Score: 10 19:00 Eye Response: none(0); Verbal Response: none(0); Motor Response: none(0); Systolic BP: iw None(0); Respiratory Rate: None(0); Wally Score: 3; Trauma Score: 0 19:20 Eye Response: none(0); Verbal Response: none(0); Motor Response: none(0); Systolic BP: iw None(0); Respiratory Rate: None(0); [place] Score: 3; Trauma Score: 0; pt intubated Procedures: 19:54 Intubation: Ventilated with 100% NRB prior to procedure. O2 saturation prior to snw procedure was 97 %. Intubated orally using # 4 Pack blade with 7.0 mm ETT. Successful on second attempt. Ventilated with Ambu bag. ventilator. Cricoid pressure applied during procedure. Tube secured with ETT jean measured 22 cm at lip. Placement verified by CO2 detector with (+) color change, auscultating bilateral breath sounds, O2 saturation after procedure was 98 %. Patient tolerated well. MDM: 19:09 Patient medically screened. kdr 19:28 Data reviewed: vital signs, nurses notes, lab test result(s), radiologic studies. kdr Counseling: I had a detailed discussion with the patient and/or guardian regarding: the historical points, exam findings, and any diagnostic results supporting the discharge/admit diagnosis, lab results, radiology results, the need to transfer to another facility. Physician consultation: Gamal Palm MD and will see patient in ED, immediately. 09/23 18:30 Order name: Amylase, Serum; Complete Time: 19:57 [facility] 09/23 18:30 Order name: Basic Metabolic Panel; Complete Time: 19:57 [facility] 09/23 18:30 Order name: CBC with Diff; Complete Time: 19:24 [facility] 09/23 18:30 Order name: Creatinine for Radiology; Complete Time: 19:11 [facility] 09/23 18:30 Order name: ETOH Level; Complete Time: 19:57 [facility] 09/23 18:30 Order name: Hepatic Function; Complete Time: 19:57 [facility] 09/23 18:29 Order name: CT Traumagram (Head C Spine CAP wo con) [facility] 09/23 18:30 Order name: Lipase; Complete Time: 19:57 [facility] 09/23 18:30 Order name: Type And Screen; Complete Time: 19:57 [facility] 09/23 18:33 Order name: CXR XRAY; Complete Time: 19:57 09/23 18:38 Order name: CPK; Complete Time: 19:57 [facility] 09/23 18:58 Order name: CBC Smear Scan; Complete Time: 19:24 [facility] 09/23 18:30 Order name: IV Saline Lock; Complete Time: 19:41 [facility] 09/23 18:30 Order name: Labs collected and sent; Complete Time: 19:41 [facility] 09/23 18:30 Order name: NPO; Complete Time: 19:41 [facility] 09/23 18:30 Order name: O2 Per Protocol; Complete Time: 19:41 [facility] 09/23 18:30 Order name: O2 Sat Monitoring; Complete Time: 19:41 [facility] 09/23 18:30 Order name: Urine Dipstick-Ancillary (obtain specimen); Complete Time: 19:41 [facility] Administered Medications: 18:55 Drug: Lidocaine 100 mg Route: IVP; Site: left antecubital; iw 18:59 Follow up: Response: No adverse reaction iw 18:56 Drug: Etomidate 20 mg Route: IVP; Site: left antecubital; iw 18:59 Follow up: Response: No adverse reaction; Patient is sedated iw 18:56 Drug: VecuroNIUM 10 mg Route: IVP; Site: left antecubital; iw 18:59 Follow up: Response: No adverse reaction; Patient is sedated iw 18:59 Drug: NS 0.9% 1000 ml Route: IV; Rate: 1000 ml; Site: left antecubital; iw 20:20 Follow up: IV Status: Completed infusion; IV Intake: 1000ml tl2 19:03 Drug: CEREbyx 1 grams Route: IVPB; Site: right wrist; iw 20:20 Follow up: IV Status: Completed infusion tl2 19:03 Drug: Propofol 5 mcg/kg/min Route: IV; Rate: calculated rate; Site: left antecubital; iw 20:20 Follow up: IV Status: Infusion continued upon transfer tl2 20:22 Not Given (Given to [facility]): Potassium Chloride 40 mEq IV at calculated rate tl2 once; administer over 1-[address] Palm give to [facility] Disposition: 09/23/17 19:[address] [facility]. Diagnosis is ICH, metastatic CA, brain mets, hypokalemia, hypercalcemia, Rhabdo. - Reason for transfer: Higher level of care. - Accepting physician is Dr. Banks. [place] [facility]. - Condition is Fair. - Problem is new. - Symptoms have worsened. Signatures: Dispatcher [employer] EDMS Caleb Serna MD MD kdr Camilla Rodriguez, BARK TANNER-C BARK TANNER-Csnw Farideh Gustafson, LESLEY RN iw Sita Bazan, RN RN tl2 Emil Carrasco RN RN jl7 Corrections: (The following items were deleted from the chart) 19:28 19:09 09/23/2017 19:[address] [facility]. kdr Diagnosis is ICH, metastatic CA, brain mets. Reason for transfer: Higher level of care. Accepting physician is [place] [facility]. Condition is Fair. Problem is new. Symptoms have worsened. kdr 20:22 19:28 09/23/2017 19:[address] [facility]. tl2 Diagnosis is ICH, metastatic CA, brain mets, hypokalemia, hypercalcemia, Rhabdo. Reason for transfer: Higher level of care. Accepting physician is Dr. Banks. [place] [facility]. Condition is Fair. Problem is new. Symptoms have worsened. kdr
[2017-09-23 19:24] LABS: Albumin 3.8 g/dL (3.4-5.0); Bilirubin Direct 0.6 mg/dL (0-0.2); Bilirubin Total 1.3 mg/dL (0.2-1.0); Blood Morphology Comment NOT SEEN (NOT SEEN); Platelet Estimate ADEQ; Urine White Blood Cell Casts OK
[2017-09-23 19:28] LABS: Potassium 2.2 mmol/L (3.5-5.1)
--- NOTE | 2017-09-23 19:46 | RAD REPORT ---
EXAM DESCRIPTION: CT - Head C Spine Cap Wo Con - 09/23/2017 6:55 pm CLINICAL HISTORY: Trauma, head and neck injury. Chest, abdomen and pelvis pain. Drowsiness COMPARISON: [facility] Protocol dated 08/29/2017; HEAD BRAIN W O CONTRAST dated 09/07/2014Stone Protocol nitish ed 08/29/2017; HEAD BRAIN W O CONTRAST dated 09/07/2014; Chest Single View dated 09/23/2017 TECHNIQUE: CT head without contrast. CT cervical spine without contrast with coronal and sagittal reformatted images. CT chest, abdomen and pelvis without contrast with coronal and sagittal reformatted images of the [facility] [place]. All CT scans are performed using dose optimization technique as appropriate and may include automated exposure control or mA/KV adjustment according to patient size. FINDINGS: CT HEAD WITHOUT CONTRAST: 30 x 28 mm intra-axial mass is suspected in the right parietal lobe. There is moderate surrounding wh ite matter edema seen in significant hemorrhage extending into the right parietal and right temporal lobes. The right lateral ventricle appears displaced anteriorly. [id number] midline shift of 12 mm is noted. 7 mm hyperdense focus in the white matter of the left frontal lobe is noted likely a small hemorrhagic lesion. The paranasal sinuses and mastoids are clear. The calvarium is intact. CT CERVICAL SPINE WITHOUT CONTRAST: No fracture or subluxation. Moderate lower cervical degenerative changes. The prevertebral soft tissu es are normal in thickness. CT CHEST, ABDOMEN, PELVIS WITHOUT CONTRAST: NOTE: Lack of contrast is a significant limitation in the assessment of trauma related findings. Spec ifically, solid organ, vascular and bowel evaluation is significantly limited. Pathologic lymphadenopathy is identified at the base of the neck in the supraclavicular region, large st measuring 2.0 cm, pre-vascular space measuring 2.3 cm and 1.7 cm. Large bulky lymphadenopathy raymon lomerate noted at pretracheal space measuring 4.3 x 4.3 cm and sub-carinal space measuring 4.5 x 4.0 cm.Large irregular mass is seen with endobronchial plugging distally in right lower lobe measuring 3. 6 x 3.1 cm.No pneumothorax or pericardial/pleural fluid. Mild free fluid is seen along the hepatic edge. The liver appears enlarged with evidence of cirrhosis . Portal hypertension with recannulized periumbilical vein noted. The spleen is mildly prominent. Mil d peripancreatic edema is present. Mild pancreatitis is a possibility and correlation with amylase/ l ipase levels is suggested. Gallstones are present gallbladder. Sigmoid diverticulosis without diverticulitis. Moderate stool in the rectum. No bowel obstruction, ab scess or free air. Destructive bone lesion is noted involving the right-sided posterior element/ facet joint at L4-5 linda suring 5.0 x 4.0 cm. This has a high probability of metastatic origin. Mild superior wedge compressio n deformities are seen affecting L2 and L3 vertebral bodies. IMPRESSION: Right parietal intra-axial mass lesion with significant surrounding vasogenic edema and hemorrhage 12 right to left midline shift. Additional small 7 mm hemorrhagic lesion is seen left fron kathleen lobe medially. Significant intrathoracic pathologic lymphadenopathy with large right lower lobe pulmonary mass. Destructive bone lesion in involving the right posterior elements of L4-5. Collective findings favor metastatic lung carcinoma. Findings were discussed with Dr. Serna in the ER 07:40 p.m. 09/23/2017 by telephone.
--- NOTE | 2017-09-23 19:51 | RAD REPORT ---
EXAM DESCRIPTION: RAD - Chest Single View - 09/23/2017 6:42 pm CLINICAL HISTORY: TRAUMA Chest pain. COMPARISON: Head C Spine Cap Wo Con dated 09/23/2017 FINDINGS: Portable technique limits examination quality. Widening of the superior mediastinum is noted compatible with lymphadenopathy. Rounded right lower lo be pulmonary mass lesion also detected. Left lung appears clear. The heart is normal in size. No disp laced fractures. IMPRESSION: Intrathoracic malignancy and lymphadenopathy is suspected.
[2017-09-23] MEDS ORDERED: KCL 20 MEQ/100 mL IVPB 40 MEQ/200 ML BAG IV ONE (20:11)
== END 2017-09-23 20:22 | disposition short-term general hospital (02) ==
LOC: ER 18:26
PROC: 0BH17EZ Insertion of Endotracheal Airway into Trachea, Via Natural or Artificial Opening (ICD-10-PCS; principal; 2017-09-23)
PROC: 5A1935Z Respiratory Ventilation, Less than 24 Consecutive Hours (ICD-10-PCS; 2017-09-23)
DX: S06.309A Unspecified focal traumatic brain injury with loss of consciousness of unspecified duration, initial encounter (principal); C71.9 Malignant neoplasm of brain, unspecified; W19.XXXA Unspecified fall, initial encounter; Y93.9 Activity, unspecified; Y92.009 Unspecified place in unspecified non-institutional (private) residence as the place of occurrence of the external cause; E87.6 Hypokalemia; E83.52 Hypercalcemia; M62.82 Rhabdomyolysis
CPT/HCPCS: 31500; 36415; 51702; 70450; 71045; 71250; 72125; 80048; 80076; 80320; 82150; 82550; 82962; 83690; 85025; 86850; 86900; 86901; 99291; J0330; J2250; J7030; Q2009